=== PATIENT | male | born 1950 | race Caucasian/White ===

== ENCOUNTER → 2016-04-04 | Outpatient (CLI) | payer MEDICARE ==
[2016-04-04 13:07] LABS: FREE T3 4.05 pg/mL (2.77-5.27)
[2016-04-04 13:21] LABS: THYROID STIMULATING HORMONE 0.63 uIU/mL (0.47-4.68)
== END ==
LOC: OD 11:30
PROVIDERS: ATTEND Physician Assistant Surgical
DX: E04.2 Nontoxic multinodular goiter (principal)
CPT/HCPCS: 36415; 84436; 84443; 84481

== ENCOUNTER → 2017-02-18 | Outpatient (CLI) | payer MEDICARE, OTHER ==
--- NOTE | 2017-02-18 14:32 | RADIOLOGY REPORT (SQ) ---
EXAM DESCRIPTION: CT CHEST WITHOUT COMPLETED DATE/TIME: 02/18/2017 2:08 pm REASON FOR STUDY: R05 COUGH R05 COUGH COMPARISON: None. TECHNIQUE: CT scan performed of the chest without intravenous contrast. Images reviewed with lung, soft tissue and bone windows. Reconstructed coronal and sagittal MPR images reviewed. All images st ored on PACS. All CT scanners at this facility use dose modulation, iterative reconstruction, and/or weight based d osing when appropriate to reduce radiation dose to as low as reasonably achievable (ALARA). [facility]: Dose Right [facility]: CareDose [facility]: Dose Right [facility]: Teradose 4D [facility]: Smart Technologies RADIATION DOSE: CT Rad equipment meets quality standard of care and radiation dose reduction techniq ues were employed. CTDIvol: 5.3 mGy. DLP: 205 mGy-cm. mGy. LIMITATIONS: No technical limitations. FINDINGS: LUNGS AND PLEURA: Emphysematous changes. There is faint indistinct ground-glass opacity i n the anterior right upper lobe (series 4, image 47). Maximum measurement is 15 mm. No masses, infi ltrates, pneumothorax. No pleural effusions, calcifications. HILAR AND MEDIASTINAL STRUCTURES: No identified masses or abnormal nodes. No obvious aneurysm. HEART AND VASCULAR STRUCTURES: No aneurysm. No pericardial effusion. UPPER ABDOMEN: No significant findings. Limited exam. THYROID AND OTHER SOFT TISSUES: No masses. No adenopathy. BONES: No significant finding. HARDWARE: None in the chest. OTHER: No other significant findings. IMPRESSION: EMPHYSEMATOUS CHANGES. FAINT INDISTINCT GROUND-GLASS OPACITY IN THE RIGHT UPPER LOBE DESCRIBED. THIS IS NONSPECIFIC AND COULD REPRESENT AN AREA OF MILD INFLAMMATION OR INFECTION. NO O THER SIGNIFICANT FINDINGS. COMMENT: Fleischner Criteria for Ground Glass Nodules: >6mm ground glass single nodule: CT 6-12 mo, then CT every 2 yr until 5 yr TECHNICAL DOCUMENTATION: JOB ID: [id number] Quality ID # [id number]: Final reports with documentation of one or more dose reduction techniques (e.g., Au tomated exposure control, adjustment of the mA and/or kV according to patient size, use of iterative reconstruction technique) 2010 [employer]- All Rights Reserved
== END ==
LOC: RAD 14:29
PROVIDERS: ATTEND Physician Assistant
DX: R05 Cough (principal)
CPT/HCPCS: 71250

== ENCOUNTER 2017-03-17 03:01 | Emergency (ER) | payer OTHER, MEDICARE ==
[2017-03-17] MEDS ORDERED: HYDROCODONE/ACETAMINOPHEN 5-325 MG (6 TAB/ER DISP) PO PRN (04:48)
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
[2017-03-17 05:01] VITALS: BP 147/97
== END 2017-03-17 05:01 | disposition home or self-care (01) ==
LOC: ER 03:01
DX: M54.2 Cervicalgia (principal); M62.838 Other muscle spasm; V49.40XA Driver injured in collision with unspecified motor vehicles in traffic accident, initial encounter
CPT/HCPCS: 99283

== ENCOUNTER → 2017-03-25 | Outpatient (CLI) | payer MEDICARE, OTHER ==
--- NOTE | 2017-03-25 13:53 | RADIOLOGY REPORT (SQ) ---
EXAM DESCRIPTION: U/S THYROID/SFT TISS HD NECK COMPLETED DATE/TIME: 03/25/2017 11:02 am REASON FOR STUDY: E07.9 DISORDER OF THYROID, UNSPECIFIED E07.9 DISORDER OF THYROID, UNSPECIFIED COMPARISON: CT chest 02/18/2017 Thyroid ultrasound 03/12/2016 CT cervical spine 01/05/2009 TECHNIQUE: Dynamic and static kelley-scale images acquired of the thyroid gland. Selected additional c olor/power Doppler images recorded. All images stored to PACS. LIMITATIONS: None. FINDINGS: RIGHT LOBE: Normal size, 5.2 x 2 x 1.5 cm in size. Homogeneous echotexture. Multiple sma ll complex cysts are present in the right lobe thyroid, the largest is 9 mm in diameter in the right lower pole laterally, next largest is 5 to 6 mm in size right upper pole. These are stable. LEFT LOBE: Normal size, 5.2 x 2 x 2 cm in size. Homogeneous echotexture. Multiple small colloid cys ts are present less than 3 mm in size ISTHMUS: 5 to 6 mm in thickness with homogeneous echotexture and a stable us in 3 mm colloid cyst OTHER: No other significant finding. IMPRESSION: Stable appearance of the thyroid. Multiple benign-appearing colloid cysts are similar c ompared to ultrasound 03/12/2016 TECHNICAL DOCUMENTATION: JOB ID: [id number]- All Rights Reserved
== END ==
LOC: RAD 10:35
PROVIDERS: ATTEND Physician Assistant
DX: E07.9 Disorder of thyroid, unspecified (principal)
CPT/HCPCS: 76536

== ENCOUNTER → 2018-12-16 | Outpatient (CLI) | payer MEDICARE, OTHER ==
--- NOTE | 2018-12-16 17:11 | RADIOLOGY REPORT (SQ) ---
EXAM DESCRIPTION: CT CHEST WITHOUT COMPLETED DATE/TIME: 12/16/2018 2:13 pm REASON FOR STUDY: C34.2 MALIGNANT NEOPLASM OF MIDDLE LOBE, BRONCHUS OR LUNG C34.2 MALIGNANT NEOPLAS M OF MIDDLE LOBE, BRONCHUS OR LUNG COMPARISON: CT chest 02/18/2017, 01/05/2009 TECHNIQUE: CT scan performed of the chest without intravenous contrast. Images reviewed with lung, soft tissue and bone windows. Reconstructed coronal and sagittal MPR images reviewed. All images st ored on PACS. All CT scanners at this facility use dose modulation, iterative reconstruction, and/or weight based d osing when appropriate to reduce radiation dose to as low as reasonably achievable (ALARA). [facility]: Dose Right [facility]: CareDose [facility]: Dose Right [facility]: Teradose 4D [facility]: [employer] RADIATION DOSE: CT Rad equipment meets quality standard of care and radiation dose reduction techniq ues were employed. CTDIvol: 4.6 mGy. DLP: 175 mGy-cm. mGy. LIMITATIONS: No technical limitations. FINDINGS: LUNGS AND PLEURA: At the right lung apex, a 1.5 x 1.3 cm spiculated mass is present on axi al image 37 highly suspicious for malignancy. In the medial right upper lobe, a 3 x 2.7 cm spiculated mass is present on axial image 48 and 49, hig hly suspicious for malignancy. Remainder of the lungs exhibit obstructive disease at the apices. No pleural effusion. No pneumotho rax. No other worrisome pulmonary nodules. Airways are patent. HILAR AND MEDIASTINAL STRUCTURES: No identified masses or abnormal nodes. No obvious aneurysm. HEART AND VASCULAR STRUCTURES: No aneurysm. No pericardial effusion. UPPER ABDOMEN: No significant findings. Limited exam. THYROID AND OTHER SOFT TISSUES: No masses. No adenopathy. BONES: No lytic destructive lesion in the right T7 vertebral body and pedicle. Lytic destructive les ion in the inferior T11 vertebral body. Lytic destructive right posterior 8th rib lesion at the cost overtebral joint. HARDWARE: None in the chest. OTHER: No other significant findings. IMPRESSION: Right upper lobe masses worrisome for lung neoplasm. 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
== END ==
LOC: RAD 13:33
PROVIDERS: ATTEND Internal Medicine
DX: C34.2 Malignant neoplasm of middle lobe, bronchus or lung (principal); C79.51 Secondary malignant neoplasm of bone
CPT/HCPCS: 71250

== ENCOUNTER 2018-12-18 16:50 | Emergency (ER) | payer MEDICARE, OTHER ==
[2018-12-18 16:55] VITALS: BP 122/80
[2018-12-18] MEDS ORDERED: OXYCODONE-ACETAMINOPHEN 5-325 MG TABLET PO ONE (17:50)
--- NOTE | 2018-12-18 17:52 | ER Document Report ---
ED Medical Screen (RME) - General Chief Complaint: Pain Stated Complaint: RIB PAIN Time Seen by Provider: 12/18/18 17:43 Primary Care Provider: YANET MONREAL MD [Primary Care Provider] - Follow up as needed Mode of Arrival: Ambulatory Information source: Patient Notes: Patient presents complaining of right posterior rib pain for the past month. Patient denies any cough. Patient denies any urinary symptoms. Patient states today he sneezed and had an increase in pain symptoms. Review of patient's previous visits demonstrates that he had a CT of the chest 2 days ago which demonstrated bony mets in the location of patient's pain symptoms. I have greeted and performed a rapid initial assessment of this patient. A comprehensive ED assessment and evaluation of the patient, analysis of test results and completion of the medical decision making process will be conducted by additional ED providers. TRAVEL OUTSIDE OF THE [place] IN LAST 30 DAYS: No - Related Data Allergies/Adverse Reactions: No Known Allergies Allergy (Verified 12/18/18 17:35) Past Medical History - Past Medical History Cardiac Medical History: Reports: Hx Hypercholesterolemia Renal/ Medical History: Denies: Hx Peritoneal Dialysis GI Medical History: Reports: Hx Gastroesophageal Reflux Disease Past Surgical History: Reports: Hx Urinary Tract Surgery - Right nephrectomy, prostatectomy - Immunizations Immunizations up to date: Yes Hx Diphtheria, Pertussis, Tetanus Vaccination: Yes Physical Exam - Vital signs Vitals: Temp Pulse Resp BP Pulse Ox 97.9 F 91 20 122/80 96 12/18/18 16:53 12/18/18 16:53 12/18/18 16:53 12/18/18 16:53 12/18/18 16:53 - Respiratory Respiratory status: No respiratory distress Chest status: Pain on movement, Pain with deep breathing Breath sounds: Nonproductive cough Chest palpation: Tender Course - Vital Signs Vital signs: Temp Pulse Resp BP Pulse Ox 97.9 F 91 20 122/80 96 12/18/18 16:53 12/18/18 16:53 12/18/18 16:53 12/18/18 16:53 12/18/18 16:53 Doctor's Discharge - Discharge Referrals: YANET MONREAL MD [Primary Care Provider] - Follow up as needed
--- NOTE | 2018-12-18 18:27 | RADIOLOGY REPORT (SQ) ---
EXAM DESCRIPTION: CHEST 2 VIEWS COMPLETED DATE/TIME: 12/18/2018 6:08 pm REASON FOR STUDY: r post rib pain COMPARISON: CT 12/16/2018 TECHNIQUE: Frontal and lateral radiographic views of the chest acquired. NUMBER OF VIEWS: Two view. LIMITATIONS: None. FINDINGS: LUNGS AND PLEURA: No pneumothorax. Similar right parahilar and upper lobe masses- nodular ity. Mild bilateral basilar subsegmental atelectasis. No significant Pleural effusion. MEDIASTINUM AND HILAR STRUCTURES: Stable. HEART AND VASCULAR STRUCTURES: Stable. BONES: Compared with the CT scan from 12/16/2018, the lytic lesion in the posterior aspect of the rig ht 9th rib is identified. The medial 8th rib and vertebral body lesions are not clearly visible. HARDWARE: None in the chest. OTHER: No other significant finding. IMPRESSION: Similar right parahilar and upper lobe masses- nodularity. Mild bilateral basilar subse gmental atelectasis. No significant Pleural effusion. Compared with the CT scan from 12/16/2018, the lytic lesion in the posterior aspect of the right 9th r ib is identified. The medial 8th rib and vertebral body lesions are not clearly visible. TECHNICAL DOCUMENTATION: JOB ID: [id number] [place]-72 2010 [employer]- All Rights Reserved Reading location - IP/workstation name: [email or web address]
[2018-12-18 18:36] LABS: ABSOLUTE EOSINOPHILS # (AUTO) 0.1 10^3/uL (0.0-0.6); ABSOLUTE LYMPHOCYTES (AUTO) 1.1 10^3/uL (0.5-4.7); ABSOLUTE MONOCYTES (AUTO) 0.5 10^3/uL (0.1-1.4); ABSOLUTE NEUT (AUTO) 6.1 10^3/uL (1.7-8.2); BASOPHILS % (AUTO) 0.6 % (0-2); EOSINOPHILS % (AUTO) 1.6 % (0-6); HEMATOCRIT 44.6 % (37.9-51.0); HEMOGLOBIN 15.3 g/dL (13.5-17.0); LYMPHOCYTES % (AUTO) 14.1 % (13-45); MEAN CORPUSCULAR HEMOGLOBIN 30.8 pg (27.0-33.4); MEAN CORPUSCULAR HGB CONC 34.4 g/dL (32.0-36.0); MEAN CORPUSCULAR VOLUME 89 fl (80-97); MONOCYTES % (AUTO) 6.8 % (3-13); PLATELET COUNT 333 10^3/uL (150-450); RED BLOOD COUNT 4.99 10^6/uL (4.35-5.55); RED CELL DISTRIBUTION WIDTH 14.8 % (11.5-14.0); SEGMENTED NEUTROPHILS % (AUTO) 76.9 % (42-78); TOTAL CELLS COUNTED % (AUTO) 100 %; WHITE BLOOD COUNT 7.9 10^3/uL (4.0-10.5)
[2018-12-18 18:48] LABS: ALBUMIN 4.2 g/dL (3.5-5.0); ALKALINE PHOSPHATASE 120 U/L (38-126); ANION GAP 11 (5-19); ASPARTATE AMINO TRANSFERASE 62 U/L (17-59); BILIRUBIN,DIRECT 0.3 mg/dL (0.0-0.4); BILIRUBIN,TOTAL 0.3 mg/dL (0.2-1.3); BLOOD UREA NITROGEN 20 mg/dL (7-20); CALCIUM 9.8 mg/dL (8.4-10.2); CARBON DIOXIDE 26 mmol/L (22-30); CHLORIDE 96 mmol/L (98-107); GLUCOSE 135 mg/dL (75-110); POTASSIUM 4.3 mmol/L (3.6-5.0)
--- NOTE | 2018-12-18 20:49 | ER Document Report ---
ED General Pain - General Chief Complaint: Pain Stated Complaint: RIB PAIN Time Seen by Provider: 12/18/18 17:43 Primary Care Provider: YANET MONREAL MD [ACTIVE STAFF] - Follow up as needed Mode of Arrival: Ambulatory Notes: RME NOTE: Patient presents complaining of right posterior rib pain for the past month. Patient denies any cough. Patient denies any urinary symptoms. Patient states today he sneezed and had an increase in pain symptoms. Review of patient's previous visits demonstrates that he had a CT of the chest 2 days ago which demonstrated bony mets in the location of patient's pain symptoms. MY HPI: Pt. is currently under the care of Dr. Monreal, oncology for lung CA, h/o kidney CA, prostate CA. Patient does complain of generalized pain in the right side of his ribs when he takes a deep breath or coughs. Patient's denying any URI symptoms. States he only sneezed once this afternoon. TRAVEL OUTSIDE OF THE [place] IN LAST 30 DAYS: No - Related Data Allergies/Adverse Reactions: No Known Allergies Allergy (Verified 12/18/18 17:35) Past Medical History - General Information source: Patient - Social History Smoking Status: Former Smoker Family History: Reviewed & Not Pertinent Patient has suicidal ideation: No Patient has homicidal ideation: No - Past Medical History Cardiac Medical History: Reports: Hx Hypercholesterolemia Renal/ Medical History: Denies: Hx Peritoneal Dialysis GI Medical History: Reports: Hx Gastroesophageal Reflux Disease Past Surgical History: Reports: Hx Urinary Tract Surgery - Right nephrectomy, prostatectomy - Immunizations Immunizations up to date: Yes Hx Diphtheria, Pertussis, Tetanus Vaccination: Yes Review of Systems - Review of Systems Constitutional: denies: Fever EENT: See HPI Cardiovascular: See HPI Respiratory: See HPI Gastrointestinal: No symptoms reported Genitourinary: No symptoms reported Male Genitourinary: No symptoms reported Musculoskeletal: See HPI Skin: No symptoms reported Hematologic/Lymphatic: No symptoms reported Neurological/Psychological: No symptoms reported Physical Exam - Vital signs Vitals: Temp Pulse Resp BP Pulse Ox 97.9 F 91 20 122/80 96 12/18/18 16:53 12/18/18 16:53 12/18/18 16:53 12/18/18 16:53 12/18/18 16:53 - Notes Notes: GENERAL: Alert, interacts well. No acute distress. HEAD: Normocephalic, atraumatic. EYES: Pupils equal, round, and reactive to light. Extraocular movements intact. ENT: Oral mucosa moist, tongue midline. NECK: Full range of motion. Supple. Trachea midline. LUNGS: Clear to auscultation bilaterally, no wheezes, rales, or rhonchi. No respiratory distress. HEART: Regular rate and rhythm. No murmur Chest: No crepitus felt, no erythema ecchymosis noted anterior posterior chest wall. Generalized pain noted right mid axillary lower ribs. ABDOMEN: Soft, non-tender. Non-distended. Bowel sounds present in all 4 quadrants. EXTREMITIES: Moves all 4 extremities spontaneously. No edema, normal radial and dorsalis pedis pulses bilaterally. No cyanosis. BACK: no cervical, thoracic, lumbar midline tenderness. No saddle anesthesia, normal distal neurovascular exam. NEUROLOGICAL: Alert and oriented x3. Normal speech. cranial nerves II through XII grossly intact. PSYCH: Normal affect, normal mood. SKIN: Warm, dry, normal turgor. No rashes or lesions noted. Course - Re-evaluation Re-evalutation: 12/18/18 20:46 Chest X-Ray 12/18/18 17:51 IMPRESSION: Similar right parahilar and upper lobe masses- nodularity. Mild bilateral basilar subsegmental atelectasis. No significant Pleural effusion. Compared with the CT scan from 12/16/2018, the lytic lesion in the posterior aspect of the right 9th rib is identified. The medial 8th rib and vertebral body lesions are not clearly visible. Patient is non-tachycardic, non-hypotensive, will treat for potential rib fracture. Patient voices he has an appointment with oncology Dr. Monreal on Thursday. Return precautions discussed. - Vital Signs Vital signs: Temp Pulse Resp BP Pulse Ox 97.9 F 91 20 122/80 96 12/18/18 16:53 12/18/18 16:53 12/18/18 16:53 12/18/18 16:53 12/18/18 16:53 - Laboratory Result Diagrams: 12/18/18 18:00 12/18/18 18:00 Laboratory results interpreted by me: 12/18/18 12/18/18 18:00 18:00 RDW 14.8 H Sodium 133.3 L Chloride 96 L Creatinine 1.94 H Est GFR ( Amer) 42 L Est GFR (MDRD) Non-Af 35 L Glucose 135 H AST 62 H Discharge - Discharge Clinical Impression: Rib pain on right side Condition: Stable Disposition: HOME, SELF-CARE Instructions: Chest Wall Pain ([facility]), Rib Injuries and Fractures ([facility]) Additional Instructions: As we discussed you have been seen and treated in the emergency department for potential injury to her right ribs. There is a potential that you are cancer has spread to your bones. Please make sure you are following up with oncology. Please also use incentive spirometer as instructed by nursing staff. Please take prescription narcotics only as needed. Please return to the emergency room for any concerns. Prescriptions: Hydrocodone/Acetaminophen [[place] 5-325 mg Tablet] 1 tab PO Q6 PRN #20 tablet PRN Reason: Referrals: YANET MONREAL MD [ACTIVE STAFF] - Follow up as needed
== END 2018-12-18 20:53 | disposition home or self-care (01) ==
LOC: ER 16:50
DX: R07.81 Pleurodynia (principal); R06.7 Sneezing; C34.90 Malignant neoplasm of unspecified part of unspecified bronchus or lung; J98.11 Atelectasis; Z87.891 Personal history of nicotine dependence
CPT/HCPCS: 36415; 85025; 80053; 71046; A9270; 99283

== ENCOUNTER 2018-12-28 09:10 | Day surgery (SDC) | payer MEDICARE, OTHER ==
[2018-12-28 10:12] LABS: HEMATOCRIT 41.4 % (37.9-51.0); HEMOGLOBIN 14.1 g/dL (13.5-17.0); MEAN CORPUSCULAR HEMOGLOBIN 30.2 pg (27.0-33.4); MEAN CORPUSCULAR HGB CONC 33.9 g/dL (32.0-36.0); MEAN CORPUSCULAR VOLUME 89 fl (80-97); PLATELET COUNT 299 10^3/uL (150-450); RED BLOOD COUNT 4.65 10^6/uL (4.35-5.55); RED CELL DISTRIBUTION WIDTH 14.6 % (11.5-14.0)
[2018-12-28 10:27] LABS: INTERNATIONAL RATION (INR) 1.02; PROTHROMBIN TIME 13.4 SEC (11.4-15.4)
[2018-12-28 10:33] LABS: BLOOD UREA NITROGEN 22 mg/dL (7-20)
[2018-12-28] MEDS ORDERED: MIDAZOLAM 2 MG/2 ML INJ ONE (10:47)
[2018-12-28] MEDS ORDERED: FENTANYL CITRATE INJ/PF 100 MCG/2 ML AMPUL ONE (10:48)
[2018-12-28 13:48] VITALS: BP 125/82
--- NOTE | 2018-12-28 14:10 | RADIOLOGY REPORT (SQ) ---
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 FLUORO TIME: 6.1 seconds 76 images saved to PACS. LIMITATIONS: None. PROCEDURE: The procedure, risks, benefits, and alternatives were discussed with the patient in the p reprocedural area, and all questions were answered. Informed consent was obtained verbally and in wri ting. The patient was then brought to the CT suite, positioned prone on the CT gurney, and a time-out was p erformed. After that, axial images of the chest were obtained for targeting of the lytic lesion in t he right posterior 8th rib. Based on review of the axial images an appropriate access site was selec venita on the skin. The area around selected access site was then prepped and draped 2% chlorhexidine utilizing standard sterile technique. After that, the access site was infiltrated with 1% lidocaine and an incision was made in the skin with a #11 blade. A 17 gauge coaxial needle was then advanced through the skin inci ehsan and into the lytic lesion utilizing CT fluoroscopic guidance. After that, the inner stylet of th e coaxial needle was removed and 3 18 gauge core samples were obtained of the lytic lesion - the samp les were collected and submitted to cytopathology in formalin. The coaxial needle was then removed and axial images of the chest were repeated and reviewed ; the im ages demonstrated no acute biopsy-related complication. The patient tolerated the procedure well without immediate complication. At the end of the procedure the patient's condition was unchanged from the preprocedural baseline. IV conscious sedation was administered at the direction of the performing physician by a madeline silva. 1 milligrams of Versed and 75 micrograms of fentanyl were administered. Physiologic monitoring was provided before, during, and after sedation. The total sedation time was 30 minutes. Documentation of [id number] time the performing proceduralist spent monitoring the patient: 5 mingael weiss. IMPRESSION: Successful CT-guided biopsy of the lytic lesion in the right 8th rib as detailed above. COMMENT: Patient medication list reviewed:Yes- Quality ID# 130:Eligible professional attests to docu menting in the medical record they obtained, updated, or reviewed the patient's current medications. Quality ID #76: The patient was prepped and draped using maximum sterile barrier technique including cap, mask, sterile gown, sterile gloves, a large sterile sheet, hand hygiene, and 2% Chlorhexidine fo r cutaneous antisepsis. When ultrasound is used, sterile ultrasound techniques are followed requiring sterile gel and sterile probes. Quality ID 145: Final reports for procedures using fluoroscopy that document radiation exposure lizbeth tiffany, or exposure time and number of fluorographic images (if radiation exposure indices are not avail able) Quality ID# 436: Final reports with documentation of one or more dose reduction techniques (e.g., Aut omated exposure control, adjustment of the mA and/or kV according to patient size, use of iterative r econstruction technique) TECHNICAL DOCUMENTATION: JOB ID: [id number] [employer]- All Rights Reserved Reading location - IP/workstation name: [email or web address]
--- NOTE | 2018-12-28 14:10 | RADIOLOGY REPORT (SQ) ---
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 FLUORO TIME: 6.1 seconds 76 images saved to PACS. LIMITATIONS: None. PROCEDURE: The procedure, risks, benefits, and alternatives were discussed with the patient in the p reprocedural area, and all questions were answered. Informed consent was obtained verbally and in wri ting. The patient was then brought to the CT suite, positioned prone on the CT gurney, and a time-out was p erformed. After that, axial images of the chest were obtained for targeting of the lytic lesion in t he right posterior 8th rib. Based on review of the axial images an appropriate access site was selec venita on the skin. The area around selected access site was then prepped and draped 2% chlorhexidine utilizing standard sterile technique. After that, the access site was infiltrated with 1% lidocaine and an incision was made in the skin with a #11 blade. A 17 gauge coaxial needle was then advanced through the skin inci ehsan and into the lytic lesion utilizing CT fluoroscopic guidance. After that, the inner stylet of th e coaxial needle was removed and 3 18 gauge core samples were obtained of the lytic lesion - the samp les were collected and submitted to cytopathology in formalin. The coaxial needle was then removed and axial images of the chest were repeated and reviewed ; the im ages demonstrated no acute biopsy-related complication. The patient tolerated the procedure well without immediate complication. At the end of the procedure the patient's condition was unchanged from the preprocedural baseline. IV conscious sedation was administered at the direction of the performing physician by a madeline silva. 1 milligrams of Versed and 75 micrograms of fentanyl were administered. Physiologic monitoring was provided before, during, and after sedation. The total sedation time was 30 minutes. Documentation of [id number]-qd-[id number] time the performing proceduralist spent monitoring the patient: 5 mingael weiss. IMPRESSION: Successful CT-guided biopsy of the lytic lesion in the right 8th rib as detailed above. COMMENT: Patient medication list reviewed:Yes- Quality ID# 130:Eligible professional attests to docu menting in the medical record they obtained, updated, or reviewed the patient's current medications. Quality ID #76: The patient was prepped and draped using maximum sterile barrier technique including cap, mask, sterile gown, sterile gloves, a large sterile sheet, hand hygiene, and 2% Chlorhexidine fo r cutaneous antisepsis. When ultrasound is used, sterile ultrasound techniques are followed requiring sterile gel and sterile probes. Quality ID 145: Final reports for procedures using fluoroscopy that document radiation exposure lizbeth tiffany, or exposure time and number of fluorographic images (if radiation exposure indices are not avail able) Quality ID# 436: Final reports with documentation of one or more dose reduction techniques (e.g., Aut omated exposure control, adjustment of the mA and/or kV according to patient size, use of iterative r econstruction technique) TECHNICAL DOCUMENTATION: JOB ID: [id number] [employer]- All Rights Reserved Reading location - IP/workstation name: [email or web address]
== END 2018-12-28 13:35 | disposition home or self-care (01) ==
LOC: RAD 09:10
PROVIDERS: ATTEND Internal Medicine
DX: C34.2 Malignant neoplasm of middle lobe, bronchus or lung (principal); Z79.01 Long term (current) use of anticoagulants
CPT/HCPCS: 36415; 84520; 82565; 85027; 85610; 85730; 88342 ×2; 88341 ×2; 88305 ×2; 77012; 20225; J2250; J3010

== ENCOUNTER → 2019-01-06 | Outpatient (CLI) | payer MEDICARE, OTHER ==
--- NOTE | 2019-01-06 14:56 | RADIOLOGY REPORT (SQ) ---
EXAM DESCRIPTION: CT ABDOMEN COMBO COMPLETED DATE/TIME: 01/06/2019 11:08 am REASON FOR STUDY: LUNG CA (C34.2), RENAL CA (C64.1) C34.2 MALIGNANT NEOPLASM OF MIDDLE LOBE, BRONCH US OR LUNG C64.1 MALIGNANT NEOPLASM OF RIGHT KIDNEY, EXCEPT RENAL PELVI COMPARISON: 01/05/2009. TECHNIQUE: CT scan of the abdomen performed with and without intravenous contrast, and without oral contrast. Contrasted imaging performed using helical scanning technique with dynamic intravenous cont rast injection. Images reviewed with lung, soft tissue, and bone windows. Reconstructed coronal and s agittal MPR images reviewed. Delayed images for evaluation of the urinary system also acquired and ev aluated. All images stored on PACS. All CT scanners at this facility use dose modulation, iterative reconstruction, and/or weight based d osing when appropriate to reduce radiation dose to as low as reasonably achievable (ALARA). [facility]: Dose Right [facility]: CareDose [facility]: Dose Right [facility]: Teradose 4D [facility]: uberVU CONTRAST TYPE AND DOSE: contrast/concentration: Isovue 300.00 mg/ml; Total Contrast Delivered: 47.0 ml; Total Saline Delivered: 77.0 ml RENAL FUNCTION: Creatinine 1.7. RADIATION DOSE: CT Rad equipment meets quality standard of care and radiation dose reduction techniq ues were employed. CTDIvol: 4.6 - 19.7 mGy. DLP: 671 mGy-cm.. LIMITATIONS: None. FINDINGS: NONCONTRASTED IMAGING: No significant renal or bladder calcifications. No other significan t organ calcifications. POSTCONTRASTED IMAGING: LOWER CHEST: No significant findings. No nodules or infiltrates. LIVER: Normal size. Stable 1.8 cm low-attenuation lesion in the right lobe with delayed enhancement. No dilated ducts. SPLEEN: Normal size. No focal lesions. PANCREAS: No masses. No significant calcifications. No adjacent inflammation or peripancreatic fluid collections. Pancreatic duct not dilated. GALLBLADDER: No identified stones by CT criteria. No inflammatory changes to suggest cholecystitis. ADRENAL GLANDS: No significant masses or asymmetry. RIGHT KIDNEY AND URETER: Surgically absent. LEFT KIDNEY AND URETER: No solid masses. No significant calcifications. No hydronephrosis or hydr oureter. AORTA AND VESSELS: No aneurysm. No dissection. Renal arteries, SMA, celiac without stenosis. RETROPERITONEUM: No retroperitoneal adenopathy, hemorrhage or masses. BOWEL AND PERITONEAL CAVITY: No masses or inflammatory changes. No free fluid or peritoneal masses. APPENDIX: Not visualized. ABDOMINAL WALL: No masses. No hernias. BONES: No significant or acute findings. Degenerative changes in the spine. OTHER: No other significant finding. IMPRESSION: STABLE HEMANGIOMA IN THE LIVER, UNCHANGED SINCE 2008. PREVIOUS RIGHT NEPHRECTOMY. NO O THER SIGNIFICANT OR ACUTE ABNORMALITY IN THE ABDOMEN. TECHNICAL DOCUMENTATION: JOB ID: [id number] Quality ID # 436: Final reports with documentation of one or more dose reduction techniques (e.g., Au tomated exposure control, adjustment of the mA and/or kV according to patient size, use of iterative reconstruction technique) 2010 [employer]- All Rights Reserved Reading location - IP/workstation name: [email or web address]
== END ==
LOC: RAD 10:22
PROVIDERS: ATTEND Physician Assistant Medical
DX: C34.2 Malignant neoplasm of middle lobe, bronchus or lung (principal); C64.1 Malignant neoplasm of right kidney, except renal pelvis
CPT/HCPCS: 74170; 82565

== ENCOUNTER 2019-01-11 10:23 | Day surgery (SDC) | payer MEDICARE, OTHER ==
[~2019-01-11 10:23] MED LIST: AMPICILLIN SODIUM 2 GM in NORMAL SALINE 100 ML IV PRN; SUCCINYLCHOLINE CHLORIDE INJ 200 MG/10 ML VIAL ONE
[2019-01-11] MEDS ORDERED: MIDAZOLAM 2 MG/2 ML INJ ONE (11:16)
[2019-01-11] MEDS ORDERED: FENTANYL CITRATE INJ/PF 100 MCG/2 ML AMPUL ONE ×2 (11:16→13:25)
[2019-01-11] MEDS ORDERED: ONDANSETRON HCL INJ/PF 4 MG/2 ML SDV ONE (11:16)
[2019-01-11] MEDS ORDERED: PROPOFOL INJ 200 MG/20 ML VIAL IV ONE (11:16)
[2019-01-11] MEDS ORDERED: DEXAMETHASONE SOD PHOSPHATE INJ 4 MG/1 ML VIAL ONE (11:16)
[2019-01-11] MEDS ORDERED: OXYMETAZOLINE HCL 0.05% NASAL SPRAY 15 ML BOTTLE ONE (11:19)
[2019-01-11 11:47] LABS: HEMATOCRIT 40.1 % (37.9-51.0); HEMOGLOBIN 13.5 g/dL (13.5-17.0); MEAN CORPUSCULAR HGB CONC 33.8 g/dL (32.0-36.0); MEAN CORPUSCULAR VOLUME 89 fl (80-97); PLATELET COUNT 284 10^3/uL (150-450); RED BLOOD COUNT 4.52 10^6/uL (4.35-5.55); RED CELL DISTRIBUTION WIDTH 14.6 % (11.5-14.0); WHITE BLOOD COUNT 7.9 10^3/uL (4.0-10.5)
[2019-01-11 11:55] LABS: ALBUMIN 4.1 g/dL (3.5-5.0); ALKALINE PHOSPHATASE 115 U/L (38-126); ANION GAP 12 (5-19); ASPARTATE AMINO TRANSFERASE 50 U/L (17-59); BILIRUBIN,DIRECT 0.1 mg/dL (0.0-0.4); BILIRUBIN,TOTAL 0.6 mg/dL (0.2-1.3); BLOOD UREA NITROGEN 22 mg/dL (7-20); CALCIUM 9.7 mg/dL (8.4-10.2); CARBON DIOXIDE 23 mmol/L (22-30); CHLORIDE 98 mmol/L (98-107); GLUCOSE 78 mg/dL (75-110); POTASSIUM 4.4 mmol/L (3.6-5.0); TOTAL PROTEIN 7.1 g/dL (6.3-8.2)
[2019-01-11] MEDS ORDERED: DIPHENHYDRAMINE HCL 50 MG/ML VIAL IV PRN (12:14)
[2019-01-11] MEDS ORDERED: PROMETHAZINE HCL INJ 25 MG/1 ML VIAL IV PRN ×2 (12:14)
[2019-01-11] MEDS ORDERED: ONDANSETRON HCL INJ/PF 4 MG/2 ML SDV IV PRN ×2 (12:14→13:24)
[2019-01-11] MEDS ORDERED: FENTANYL CITRATE INJ/PF 100 MCG/2 ML AMPUL IV PRN ×3 (12:14)
[2019-01-11] MEDS ORDERED: MORPHINE SULFATE 10 MG/ML INJ IV PRN (12:14)
[2019-01-11] MEDS ORDERED: OXYCODONE-ACETAMINOPHEN 5-325 MG TABLET PO PRN ×2 (12:14)
[2019-01-11] MEDS ORDERED: MEPERIDINE HCL/PF INJ 25 MG/1 ML DISP.SYRIN IV PRN (12:14)
--- NOTE | 2019-01-11 14:04 | Operative Report ---
Operative Report-[facility] Operative Report: Date: 11 January 2019 History: Patient with history of renal cell carcinoma, adeno carcinoma of the lung and prostate adenocarcinoma, underwent a PET CT scan that identified increased uptake in the area of the palantine tonsils bilaterally. Physical exam revealed asymmetric tonsils with the left side being much greater than the right. Presents today for a tonsillectomy. Informed consent was obtained from the patient. Pre-operative diagnosis: 1. Asymmetric tonsils left greater than right 2. History of multiple primary cancers Post operative diagnosis: Same as above Procedure: Tonsillectomy Surgeon: Rony Fish MD, [facility] Anesthesia: General via Endotrachreal intubation Procedure: After receiving informed consent, the patient was brought to the operating room and placed supine on the operating table. After successful induction and intubation by anesthesia the patient was turned 90 degrees and placed in Trendelenburg. A shoulder roll was placed along with a head drape. A McIvor mouth gag was inserted atraumatically into the oral cavity and opened up. The soft palate was palpated and found to be normal. Red rubber catheters were inserted down each nasal cavity and brought out to elevate the soft palate. Attention was then directed to the tonsils. The right tonsil was grasped with tenaculum and retracted medially. Using Bovie electrocautery the right tonsil was dissected free from its tonsillar fossa . Hemostasis was obtained using suction Bovie electrocautery. A similar procedure was performed on the left side. The left tonsil appeared much larger than the right and was friable. The left tonsil appeared to contain a soft tissue infiltrate. Both tonsils were removed. The oral pharynx and the oral cavity were irrigated with copious amounts of normal saline, without evidence of bleeding. An orogastric tube was inserted into the stomach to aspirate gastric contents. The McIvor mouthgag was then released and reopened, the surgical bed was dry without evidence of bleeding. The McIvor mouth gag along with the red catheters were removed from the patient. The patient was then returned back to anesthesia who successfully extubated the patient. Estimated blood loss: 15 mL Fluids: 800 mL The patient was then transported to the Post Anesthesia Care Unit in stable condition with spontaneous respiration. No complication.
[2019-01-11] MEDS ORDERED: HYDROCOD/ACETAMIN 7.5-325 MG/15 ML ORAL SOLN UDCUP ONE (14:23)
[2019-01-11 16:17] VITALS: BP 128/89
--- NOTE | 2019-01-11 23:48 | EKG REPORT ---
SEVERITY:- NORMAL ECG - SINUS RHYTHM : Confirmed by: Genia Espana MD 11-Jan-2019 23:47:41
== END 2019-01-11 15:40 | disposition home or self-care (01) ==
LOC: OROUT 10:23
PROVIDERS: ATTEND Otolaryngology
DX: J35.1 Hypertrophy of tonsils (principal); J35.8 Other chronic diseases of tonsils and adenoids; C34.91 Malignant neoplasm of unspecified part of right bronchus or lung; Z79.899 Other long term (current) drug therapy; C64.1 Malignant neoplasm of right kidney, except renal pelvis; C61 Malignant neoplasm of prostate
CPT/HCPCS: 36415; 88185 ×15; 88184; 85027; 80053; 88233; 88262; 88304 ×2; 93005; 93010; 42826; J2250; J1100; J3010; J3490; J0330; J2405; J2704; J0290; J7050

== ENCOUNTER 2019-01-19 05:30 | Day surgery (SDC) | payer MEDICARE, OTHER ==
[~2019-01-19 05:30] MED LIST changes: +ACETAMINOPHEN 325 MG TABLET PO PRN; -AMPICILLIN SODIUM 2 GM in NORMAL SALINE 100 ML IV PRN; +CEFAZOLIN SODIUM 1 GM in DEXTROSE 5%-WATER 50 ML IV PRN; -SUCCINYLCHOLINE CHLORIDE INJ 200 MG/10 ML VIAL ONE
[2019-01-19 06:37] LABS: ABSOLUTE EOSINOPHILS # (AUTO) 0.2 10^3/uL (0.0-0.6); ABSOLUTE LYMPHOCYTES (AUTO) 1.2 10^3/uL (0.5-4.7); ABSOLUTE NEUT (AUTO) 6.3 10^3/uL (1.7-8.2); BASOPHILS % (AUTO) 0.6 % (0-2); EOSINOPHILS % (AUTO) 2.2 % (0-6); HEMOGLOBIN 13.2 g/dL (13.5-17.0); LYMPHOCYTES % (AUTO) 13.5 % (13-45); MEAN CORPUSCULAR HEMOGLOBIN 30.6 pg (27.0-33.4); MEAN CORPUSCULAR HGB CONC 34.7 g/dL (32.0-36.0); MEAN CORPUSCULAR VOLUME 88 fl (80-97); PLATELET COUNT 291 10^3/uL (150-450); RED BLOOD COUNT 4.31 10^6/uL (4.35-5.55); SEGMENTED NEUTROPHILS % (AUTO) 72.7 % (42-78); TOTAL CELLS COUNTED % (AUTO) 100 %; WHITE BLOOD COUNT 8.7 10^3/uL (4.0-10.5)
[2019-01-19] MEDS ORDERED: FENTANYL CITRATE INJ/PF 100 MCG/2 ML AMPUL ONE (07:03)
[2019-01-19] MEDS ORDERED: MIDAZOLAM 2 MG/2 ML INJ ONE (07:03)
[2019-01-19] MEDS ORDERED: PROPOFOL INJ 200 MG/20 ML VIAL IV ONE (07:04)
[2019-01-19] MEDS ORDERED: LIDOCAINE 1%/EPINEPHRINE INJ 20 ML VIAL ONE (07:12)
[2019-01-19] MEDS ORDERED: PROMETHAZINE HCL INJ 25 MG/1 ML VIAL IV PRN (08:11)
[2019-01-19] MEDS ORDERED: FENTANYL CITRATE INJ/PF 100 MCG/2 ML AMPUL IV PRN (08:11)
[2019-01-19] MEDS ORDERED: DIPHENHYDRAMINE HCL 50 MG/ML VIAL IV PRN (08:11)
--- NOTE | 2019-01-19 08:40 | Discharge Summary ---
Discharge Summary (SDC) - Discharge Final Diagnosis: Metastatic carcinoma Date of Surgery: 01/19/19 Discharge Date: 01/19/19 Condition: Good Treatment or Instructions: May use port; no shower for 48 hours; report to [facility] for follow-up in 2 weeks. May take Tylenol Motrin or other home pain medications as needed Referrals: DORI KRAMER MD [Primary Care Provider] - Discharge Diet: As Tolerated Discharge Activity: Activity As Tolerated Home Care Assistance: None Needed Report the Following to Your Physician Immediately: Shortness of Breath, Increase in Pain, Fever over 101 Degrees
--- NOTE | 2019-01-19 08:44 | Operative Report ---
Operative Report DATE OF SURGERY: 01/19/19 PREOPERATIVE DIAGNOSIS: Metastatic carcinoma POSTOPERATIVE DIAGNOSIS: Same OPERATION: 1. Percutaneous access right internal jugular vein with micro introducer sheath. 2. Placement of single-chamber [address]-Cxcl [address] right subclavian position. 3. Interpretation of intraoperative fluoroscopy and ultrasonography TISSUE REMOVED OR ALTERED: None COMPLICATIONS: none ESTIMATED BLOOD LOSS: scant INTRAOPERATIVE FINDINGS: see below PROCEDURE: The patient was taken to the preop holding her to the main operating room where LMAC anesthesia was induced. Arms were tucked at side, chest clipped of hair, neck and chest prepped draped sterile fashion Surgical plan surgical timeout were conducted. Ultrasound was placed on the right neck, the right internal jugular vein felt suitable for cannulation. Skin was anesthetized 1% plain lidocaine. Roney was made skin with 11 blade, a micro needle and wire threaded into the right internal jugular vein. Her graph suitable site for placement of the port was chosen. Skin was anesthetized 1% plain lidocaine. A 3 cm incision made with a knife, port pocket developed with electrocautery and blunt dissection large enough to accommodate a single-chamber Rmxivl-e-Tjxg catheter. The 8 Arabic catheter was then tunneled between the 2 incisions, trimmed the appropriate length, and attached to the port with the plastic ring. The port was tucked in the right subclavian pocket. The micro wire was switched over to a conventional 0.030 guidewire using the micro introducer sheath 5 Arabic. Then under fluoroscopic guidance, a 8 mm dilator and sheath were threaded over the guidewire, guidewire dilator removed, and free catheter and threaded into the strip away sheath. The strip away sheath was removed leaving the catheter in good position with the tip in the right atrial superior vena cava junction. There was no kinking of the catheter. There was a nice sweep at the level of the neck. Using a Rutledge needle, the chamber was aspirated and flushed with heparinized saline, dilute. Wounds closed with 3-0 Vicryl, Mastisol and Steri-Strips. Patient tolerated procedure well, taken recovery in stable condition.
[2019-01-19 11:32] VITALS: BP 113/77
--- NOTE | 2019-01-19 12:42 | RADIOLOGY REPORT (SQ) ---
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 TECHNIQUE: Intra-operative images acquired during surgical procedure to evaluate progress. NUMBER OF IMAGES: 2 LIMITATIONS: None. FINDINGS: Limited intraoperative fluoroscopic images demonstrate evidence of right internal jugular base chest port placement. Catheter tip at SVC. Please see operative report for detailed descriptio n. IMPRESSION: IMAGE(S) OBTAINED DURING PROCEDURE. COMMENT: Quality ID 145: Final reports for procedures using fluoroscopy that document radiation exp osure indices, or exposure time and number of fluorographic images (if radiation exposure indices are not available) Please consult full operative report of the attending physician for description of the procedure. TECHNICAL DOCUMENTATION: JOB ID: [id number] [employer]- All Rights Reserved Reading location - IP/workstation name: [email or web address]
== END 2019-01-19 10:00 | disposition home or self-care (01) ==
LOC: OROUT 05:30
PROVIDERS: ATTEND Surgery
DX: C25.9 Malignant neoplasm of pancreas, unspecified (principal); Q60.0 Renal agenesis, unilateral; E04.2 Nontoxic multinodular goiter; I10 Essential (primary) hypertension; Z79.899 Other long term (current) drug therapy
CPT/HCPCS: 36561; 36415; 85025; 77001; J2250; J0690; J3490; J7060; J2704; J1642; C1752; C1788; J3010

== ENCOUNTER 2019-05-10 11:36 | Inpatient (IN) | payer MEDICARE, OTHER ==
[2019-05-10] MEDS ORDERED: ACETAMINOPHEN 325 MG TABLET PO PRN ×2 (11:53→14:00)
[2019-05-10] MEDS ORDERED: OXYCODONE-ACETAMINOPHEN 5-325 MG TABLET PO PRN (11:53)
[2019-05-10] MEDS ORDERED: ONDANSETRON HCL INJ/PF 4 MG/2 ML SDV IV PRN (11:53)
[2019-05-10] MEDS: NORMAL SALINE 1000 ML 1,000 ML IV PRN ×2 (12:51→17:05)
[2019-05-10] MEDS ORDERED: IPRATROPIUM/ALBUTEROL 0.5-2.5 MG/3 ML AMPUL NEB SCH (14:00)
[2019-05-10] MEDS: IPRATROPIUM/ALBUTEROL 0.5-2.5 MG/3 ML AMPUL NEB SCH ×2 (14:11→19:51)
--- NOTE | 2019-05-10 16:20 | RADIOLOGY REPORT (SQ) ---
EXAM DESCRIPTION: CHEST 2 VIEWS COMPLETED DATE/TIME: 05/10/2019 3:00 pm REASON FOR STUDY: cough COMPARISON: Two-view chest 12/18/2018 CT chest 02/18/2017 EXAM PARAMETERS: NUMBER OF VIEWS: two views TECHNIQUE: Digital Frontal and Lateral radiographic views of the chest acquired. RADIATION DOSE: NA LIMITATIONS: none FINDINGS: LUNGS AND PLEURA: AP density right upper lobe superimposed on the access hub for permanent central line. Question pulmonary nodule versus upper lobe infiltrate. Lungs otherwise grossly clear. No pleural effusion or pneumothorax. MEDIASTINUM AND HILAR STRUCTURES: Fullness right upper hilar region HEART AND VASCULAR STRUCTURES: Heart normal size. No evidence for failure. BONES: Question lytic lesion posterior right 9th rib. HARDWARE: Right-sided permanent central line tip superior vena cava OTHER: No other significant finding. IMPRESSION: Nodule versus infiltrate right upper lobe superimposed on the permanent central line TECHNICAL DOCUMENTATION: JOB ID: [id number] 2010 [employer]- All Rights Reserved Reading location - IP/workstation name: [email or web address]
[2019-05-10] MEDS: CEFEPIME HCL 2 GM in NORMAL SALINE 50 ML IV SCH (17:02)
[2019-05-10] MEDS: DOCUSATE SODIUM 100 MG CAPSULE PO SCH (17:02)
[2019-05-10] MEDS: CALCIUM CARBONATE 600 MG TABLET PO SCH (17:02)
[2019-05-10] MEDS ORDERED: CEFEPIME HCL 2 GM in DEXTROSE 5%-WATER 50 ML IV SCH ×2 (18:00→22:00)
--- NOTE | 2019-05-10 18:46 | EKG REPORT ---
SEVERITY:- OTHERWISE NORMAL ECG - SINUS TACHYCARDIA : Confirmed by: Azucena Valle 10-May-2019 18:45:41
[2019-05-10] MEDS: FAMOTIDINE 20 MG TABLET PO SCH (21:28)
[2019-05-10] MEDS ORDERED: CEFEPIME HCL 2 GM in NORMAL SALINE 50 ML IV SCH (22:00)
[2019-05-10] MEDS ORDERED: CEFEPIME 2 GM/D5W RTU 2 GM/50 ML RTUPB IV SCH (22:00)
[2019-05-10] MEDS ORDERED: CEFEPIME HCL 2 GM in NORMAL SALINE 50 ML IV ONE (22:00)
[2019-05-11] MEDS: NORMAL SALINE 1000 ML 1,000 ML IV PRN ×3 (01:38→23:28)
[2019-05-11] MEDS: IPRATROPIUM/ALBUTEROL 0.5-2.5 MG/3 ML AMPUL NEB SCH ×4 (02:38→20:33)
[2019-05-11] MEDS: CEFEPIME HCL 2 GM in NORMAL SALINE 50 ML IV SCH ×2 (05:14→17:10)
[2019-05-11 05:47] LABS: ALBUMIN 2.3 g/dL (3.5-5.0); ALKALINE PHOSPHATASE 58 U/L (38-126); ANION GAP 7 (5-19); ASPARTATE AMINO TRANSFERASE 57 U/L (17-59); BILIRUBIN,TOTAL 0.6 mg/dL (0.2-1.3); BLOOD UREA NITROGEN 17 mg/dL (7-20); CARBON DIOXIDE 17 mmol/L (22-30); CHLORIDE 111 mmol/L (98-107); GLUCOSE 92 mg/dL (75-110); TOTAL PROTEIN 4.9 g/dL (6.3-8.2)
[2019-05-11 05:52] LABS: HEMATOCRIT 32.3 % (37.9-51.0); HEMOGLOBIN 11.3 g/dL (13.5-17.0); MEAN CORPUSCULAR HEMOGLOBIN 33.2 pg (27.0-33.4); MEAN CORPUSCULAR HGB CONC 34.8 g/dL (32.0-36.0); MEAN CORPUSCULAR VOLUME 95 fl (80-97); RED BLOOD COUNT 3.39 10^6/uL (4.35-5.55); WHITE BLOOD COUNT 2.3 10^3/uL (4.0-10.5)
[2019-05-11 06:07] LABS: CALCIUM 6.8 mg/dL (8.4-10.2)
[2019-05-11 06:35] LABS: PLATELET COUNT 50 10^3/uL (150-450)
[2019-05-11 06:40] LABS: ABSOLUTE LYMPHOCYTES# (MANUAL) 1.3 10^3/uL (0.5-4.7); BASOPHILS % (MANUAL) 0 % (0-2); EOSINOPHILS % (MANUAL) 0 % (0-6); LYMPHOCYTES % (MANUAL) 55 % (13-45); MONOCYTES % (MANUAL) 0 % (3-13); SEGMENTED NEUTROPHILS % (MAN) 45 % (42-78); TOTAL CELLS COUNTED 100
[2019-05-11 06:43] LABS: ANISOCYTOSIS 3+; OVALOCYTES SLIGHT; TEAR DROP CELLS 1+
[2019-05-11 06:47] LABS: PLATELET COMMENT DECREASED
--- NOTE | 2019-05-11 07:56 | PDOC CONSULTATION ---
Consultation Consult Date: 05/11/19 Attending physician:: DORI GREER Provider Consulted: YANET MONREAL Consult reason:: Patient with known stage IV carcinoma of unknown primary, here with weakness, increased pain and cough History of Present Illness Admission Date/PCP: 05/10/19 11:53 SINA MACHADO PA-C Patient complains of: Shortness of breath cough, weakness History of Present Illness: NUNU GONZALEZ SR is a 68 year old male with known history of carcinoma of unknown primary, originally diagnosed years ago with the kidney cancer status post resection, did actually have a recurrence in the adrenal gland and had adrenalectomy and was disease-free thereafter and was disease-free now for almost 6 years. Last year, patient was found to have a new lung lesion, ultimately biopsy-proven to be adenocarcinoma. Thereafter he was found to have other lesions in the bone and had a re-biopsy, rebiopsy actually felt this was adenocarcinoma from possible GI primary but EGD and colonoscopy was negative for any GI source, and PET scan was also negative for GI source. Regardless, we treated as a GI primary giving him FOLFOX. He received 6 cycles of that and was due for restaging imaging today. He came yesterday though for regular labs and was found to be very weak, dehydrated, overnight it was difficult for the to get him up. He came in a wheelchair. He was given some fluids but still was very weak and so was made a direct admission by Dr. Greer. Upon admission he was pancytopenic, chest x-ray showed a possible infiltrate. He is currently on antibiotics for pneumonia, broad-spectrum as well as aggressive hydration. He is getting CT of the chest abdomen pelvis today for restaging as well. Past Medical History Cardiac Medical History: Reports: Hyperlipidema, Hypertension Denies: Coronary Artery Disease, Myocardial Infarction Pulmonary Medical History: Reports: Chronic Obstructive Pulmonary Disease (COPD) Denies: Asthma, Bronchitis, Pneumonia Neurological Medical History: Denies: Seizures Malignancy Medical History: Reports: Other - Stage IV carcinoma of unknown primary GI Medical History: Reports: Gastroesophageal Reflux Disease Denies: Hepatitis, Hiatal Hernia Musculoskeltal Medical History: Denies: Arthritis Hematology: Denies: Anemia, Sickle Cell Disease Past Surgical History Past Surgical History: Reports: Other - Nephrectomy, adrenalectomy Denies: Pacemaker Social History Information Source: Patient Smoking Status: Former Smoker Electronic Cigarette use?: No Frequency of Alcohol Use: None Hx Recreational Drug Use: No Drugs: None Hx Prescription Drug Abuse: No - Advance Directive Resuscitation Status: Full Code Family History Family History: Reviewed & Not Pertinent Parental Family History Reviewed: Yes Children Family History Reviewed: Yes Sibling(s) Family History Reviewed.: Yes Medication/Allergy Home Medications: Cetirizine HCl [Zyrtec 10 mg Chewable Tab] 1 tab PO DAILY 12/28/18 Esomeprazole Magnesium [Nexium] 20 mg PO DAILY 12/28/18 Montelukast Sodium [Singulair 10 mg Tablet] 10 mg PO DAILY 12/28/18 Tiotropium [place] [Spiriva Handihaler 5 Cap/Kit (18 Mcg/Cap)] 1 cap PO DAILY 12/28/18 Fluticasone/Salmeterol [Advair 250-50 Diskus 14 Dose/Diskus] 1 inh IH DAILY 01/04/19 Calcium Carbonate [Calcium] 1,200 mg PO BID 05/10/19 Cholecalciferol (Vitamin D3) [Vitamin D3] 25 mcg PO DAILY 05/10/19 Megestrol Acetate [Megace Valery 400 mg/10 ml Udcup] 400 mg PO DAILY 05/10/19 Oxycodone HCl [Oxycodone HCl ER] 20 mg PO Q12 05/10/19 Pantoprazole Sodium 20 mg PO DAILY 05/10/19 Potassium Chloride [Klor-Con] 20 meq PO DAILY 05/10/19 Allergies/Adverse Reactions: No Known Allergies Allergy (Verified 01/19/19 05:57) Review of Systems Constitutional: ABSENT: chills, fever(s), headache(s), weight gain, weight loss Eyes: ABSENT: visual disturbances Ears: ABSENT: hearing changes Cardiovascular: ABSENT: chest pain, dyspnea on exertion, edema, orthropnea, palpitations Respiratory: ABSENT: cough, hemoptysis Gastrointestinal: ABSENT: abdominal pain, constipation, diarrhea, hematemesis, hematochezia, nausea, vomiting Genitourinary: ABSENT: dysuria, hematuria Musculoskeletal: ABSENT: joint swelling Integumentary: ABSENT: rash, wounds Neurological: ABSENT: abnormal gait, abnormal speech, confusion, dizziness, focal weakness, syncope Psychiatric: ABSENT: anxiety, depression, homidical ideation, suicidal ideation Endocrine: ABSENT: cold intolerance, heat intolerance, polydipsia, polyuria Hematologic/Lymphatic: ABSENT: easy bleeding, easy bruising Physical Exam Vital Signs: Temp Pulse Resp BP Pulse Ox 98.4 F 92 16 112/73 96 05/11/19 00:00 05/11/19 02:38 05/11/19 02:38 05/11/19 00:00 05/11/19 02:38 Intake & Output 05/10/19 05/11/19 05/12/19 06:59 06:59 06:59 Intake Total 3159 Output Total 300 Balance 2859 Weight 47.2 kg General appearance: PRESENT: no acute distress, well-developed, well-nourished Head exam: PRESENT: atraumatic, normocephalic Eye exam: PRESENT: conjunctiva pink, EOMI, PERRLA. ABSENT: scleral icterus Ear exam: PRESENT: normal external ear exam Mouth exam: PRESENT: moist, tongue midline Neck exam: ABSENT: carotid bruit, JVD, lymphadenopathy, thyromegaly Respiratory exam: PRESENT: clear to auscultation elsa. ABSENT: rales, rhonchi, wheezes Cardiovascular exam: PRESENT: RRR. ABSENT: diastolic murmur, rubs, systolic murmur Pulses: PRESENT: normal dorsalis pedis pul Vascular exam: PRESENT: normal capillary refill GI/Abdominal exam: PRESENT: normal bowel sounds, soft. ABSENT: distended, guarding, mass, organolmegaly, rebound, tenderness Rectal exam: PRESENT: deferred Extremities exam: PRESENT: full ROM. ABSENT: calf tenderness, clubbing, pedal edema Neurological exam: PRESENT: alert, awake, oriented to person, oriented to place, oriented to time, oriented to situation, CN II-XII grossly intact. ABSENT: motor sensory deficit Psychiatric exam: PRESENT: appropriate affect, normal mood. ABSENT: homicidal ideation, suicidal ideation Skin exam: PRESENT: dry, intact, warm. ABSENT: cyanosis, rash Results Laboratory Results: 05/11/19 04:56 05/11/19 04:56 05/11/19 05/11/19 04:56 04:56 WBC 2.3 L RBC 3.39 L Hgb 11.3 L Hct 32.3 L MCV 95 MCH 33.2 MCHC 34.8 RDW 21.0 H Plt Count 50 L Seg Neutrophils % Not Reportable Sodium 134.7 L Potassium 4.0 Chloride 111 H Carbon Dioxide 17 L Anion Gap 7 BUN 17 Creatinine 0.89 Est GFR ( Amer) > 60 Glucose 92 Calcium 6.8 L* Magnesium 1.9 Total Bilirubin 0.6 AST 57 Alkaline Phosphatase 58 Total Protein 4.9 L Albumin 2.3 L Impressions: Chest X-Ray 05/10/19 11:56 IMPRESSION: Nodule versus infiltrate right upper lobe superimposed on the permanent central line Status: Image reviewed by me Assessment & Plan - Diagnosis (1) Pneumonia involving right lung Qualifiers: Pneumonia type: due to unspecified organism Lung location: middle lobe of lung Qualified Code(s): J18.9 - Pneumonia, unspecified organism Is this a current diagnosis for this admission?: Yes Plan: Possible infiltrate on chest x-ray however could be the known lung nodule as well, on cefepime currently. Cultures and UA is pending. Continue antibiotics until we have negative cultures. 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 We will discuss further once we have the imaging back. (3) Pancytopenia Is this a current diagnosis for this admission?: Yes Plan: Pancytopenia related to chemotherapy, will watch (4) Hypocalcemia Is this a current diagnosis for this admission?: Yes Plan: Secondary to the Xgeva that we are giving as an outpatient, appropriate to replace IV. (5) Pain, neoplasm-related Is this a current diagnosis for this admission?: Yes Plan: Continue with pain medication, currently controlled - Time Time Spent: Greater than 70 Minutes - Inpatient Certification Based on my medical assessment, after consideration of the patient's comorbidities, presenting symptoms, or acuity I expect that the services needed warrant INPATIENT care.: Yes I certify that my determination is in accordance with my understanding of Medicare's requirements for reasonable and necessary INPATIENT services [42 CFR 412.3e].: Yes Medical Necessity: Need for Pain Control, Need for IV Antibiotics, Risk of Complication if Not Cared For in Hospital
[2019-05-11] MEDS: CALCIUM CARBONATE 600 MG TABLET PO SCH ×2 (09:38→17:10)
[2019-05-11] MEDS: FAMOTIDINE 20 MG TABLET PO SCH ×2 (09:38→21:08)
[2019-05-11] MEDS: FLUTICASONE/VILANTEROL 200-25 MCG/DOSE IH SCH (09:38)
[2019-05-11] MEDS: DOCUSATE SODIUM 100 MG CAPSULE PO SCH ×2 (09:38→17:10)
[2019-05-11] MEDS: MONTELUKAST SODIUM 10 MG TABLET PO SCH (09:38)
[2019-05-11] MEDS: UMECLIDINIUM BROMIDE 62.5 MCG/DOSE IH SCH (09:40)
--- NOTE | 2019-05-11 09:50 | PDOC H&P ---
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 coming from the GI most likely pancreatobiliary currently getting the chemotherapy per oncology also have a metastasis in the bone and the lymphoma recently complaining some cough congestion for the last 1 week and a running a fever and not feeling well Today's went to the oncology office patient was very weak and dehydrated and oncology called and sent the patient here for hospital admissions When I saw the patient's patient have a 99 fever and patients are tachycardic weak but alert awake oriented x4 Patient's at this point decided to admit in the hospital Patient's denied any chest pain just the cough no short of breath no hypoxia No abdominal pain no nausea no vomiting Discussed with the oncology scheduled for the CT of the chest abdomen pelvis tomorrow with IV contrast and p.o. contrast We will hydrate the patient's very well first Patient is currently considers himself is a full code and his next to him to make a decisions Discussed with the and the patient in the office and admitted directly in the hospital Patient's blood work this morning and oncology office was all stable Past Medical History Cardiac Medical History: Reports: Hyperlipidema, Hypertension Denies: Coronary Artery Disease, Myocardial Infarction Pulmonary Medical History: Reports: Chronic Obstructive Pulmonary Disease (COPD) Denies: Asthma, Bronchitis, Pneumonia Neurological Medical History: Denies: Seizures Renal/ Medical History: Reports: Chronic Kidney Disease Malignancy Medical History: Reports: Other - Stage IV carcinoma of unknown primary GI Medical History: Reports: Gastroesophageal Reflux Disease Denies: Hepatitis, Hiatal Hernia Musculoskeltal Medical History: Denies: Arthritis Hematology: Denies: Anemia, Sickle Cell Disease Past Surgical History Past Surgical History: Reports: Other - Nephrectomy, adrenalectomy Denies: Pacemaker Social History Information Source: Patient Smoking Status: Former Smoker Electronic Cigarette use?: No Frequency of Alcohol Use: None Hx Recreational Drug Use: No Drugs: None Hx Prescription Drug Abuse: No - Advance Directive Resuscitation Status: Full Code Family History Family History: Reviewed & Not Pertinent Parental Family History Reviewed: Yes Children Family History Reviewed: Yes Sibling(s) Family History Reviewed.: Yes Medication/Allergy Home Medications: Cetirizine HCl [Zyrtec 10 mg Chewable Tab] 1 tab PO DAILY 12/28/18 Esomeprazole Magnesium [Nexium] 20 mg PO DAILY 12/28/18 Montelukast Sodium [Singulair 10 mg Tablet] 10 mg PO DAILY 12/28/18 Tiotropium [place] [Spiriva Handihaler 5 Cap/Kit (18 Mcg/Cap)] 1 cap PO DAILY 12/28/18 Fluticasone/Salmeterol [Advair 250-50 Diskus 14 Dose/Diskus] 1 inh IH DAILY 01/04/19 Calcium Carbonate [Calcium] 1,200 mg PO BID 05/10/19 Cholecalciferol (Vitamin D3) [Vitamin D3] 25 mcg PO DAILY 05/10/19 Megestrol Acetate [Megace Valery 400 mg/10 ml Udcup] 400 mg PO DAILY 05/10/19 Oxycodone HCl [Oxycodone HCl ER] 20 mg PO Q12 05/10/19 Pantoprazole Sodium 20 mg PO DAILY 05/10/19 Potassium Chloride [Klor-Con] 20 meq PO DAILY 05/10/19 Allergies/Adverse Reactions: No Known Allergies Allergy (Verified 01/19/19 05:57) Review of Systems Constitutional: PRESENT: fatigue, fever(s), weakness. ABSENT: chills, headache(s), weight gain, weight loss Eyes: ABSENT: visual disturbances Ears: ABSENT: hearing changes Cardiovascular: ABSENT: chest pain, dyspnea on exertion, edema, orthropnea, palpitations Respiratory: PRESENT: cough. ABSENT: hemoptysis Gastrointestinal: ABSENT: abdominal pain, constipation, diarrhea, hematemesis, hematochezia, nausea, vomiting Genitourinary: ABSENT: dysuria, hematuria Musculoskeletal: ABSENT: joint swelling Integumentary: ABSENT: rash, wounds Neurological: ABSENT: abnormal gait, abnormal speech, confusion, dizziness, fo bebo weakness, syncope Psychiatric: ABSENT: anxiety, depression, homidical ideation, suicidal ideation Endocrine: ABSENT: cold intolerance, heat intolerance, menstrual abnormalities, polydipsia, polyuria Hematologic/Lymphatic: ABSENT: easy bleeding, easy bruising, lymphadenopathy Physical Exam Vital Signs: Temp Pulse Resp BP Pulse Ox 98.4 F 93 22 H 112/73 98 05/11/19 00:00 05/11/19 08:33 05/11/19 08:33 05/11/19 00:00 05/11/19 08:33 Intake & Output 05/10/19 05/11/19 05/12/19 06:59 06:59 06:59 Intake Total 3159 Output Total 300 Balance 2859 Weight 47.2 kg General appearance: PRESENT: no acute distress, well-developed, well-nourished Head exam: PRESENT: atraumatic, normocephalic Eye exam: PRESENT: conjunctiva pink, EOMI, PERRLA. ABSENT: scleral icterus Ear exam: PRESENT: normal external ear exam Mouth exam: PRESENT: moist, tongue midline Neck exam: PRESENT: full ROM. ABSENT: carotid bruit, JVD, lymphadenopathy, thyromegaly Respiratory exam: PRESENT: clear to auscultation elsa Cardiovascular exam: PRESENT: RRR. ABSENT: diastolic murmur, rubs, systolic murmur Pulses: PRESENT: normal dorsalis pedis pul, +2 pedal pulses bilateral Vascular exam: PRESENT: normal capillary refill GI/Abdominal exam: PRESENT: normal bowel sounds, soft. ABSENT: distended, guarding, mass, organolmegaly, rebound, tenderness Rectal exam: PRESENT: deferred Extremities exam: ABSENT: pedal edema Musculoskeletal exam: PRESENT: ambulatory Neurological exam: PRESENT: alert, awake, oriented to person, oriented to place, oriented to time, oriented to situation, CN II-XII grossly intact. ABSENT: motor sensory deficit Psychiatric exam: PRESENT: appropriate affect, normal mood. ABSENT: homicidal ideation, suicidal ideation Skin exam: PRESENT: dry, intact, warm. ABSENT: cyanosis, rash Results Laboratory Results: 05/11/19 04:56 05/11/19 04:56 05/11/19 05/11/19 04:56 04:56 WBC 2.3 L RBC 3.39 L Hgb 11.3 L Hct 32.3 L MCV 95 MCH 33.2 MCHC 34.8 RDW 21.0 H Plt Count 50 L Seg Neutrophils % Not Reportable Sodium 134.7 L Potassium 4.0 Chloride 111 H Carbon Dioxide 17 L Anion Gap 7 BUN 17 Creatinine 0.89 Est GFR ( Amer) > 60 Glucose 92 Calcium 6.8 L* Magnesium 1.9 Total Bilirubin 0.6 AST 57 Alkaline Phosphatase 58 Total Protein 4.9 L Albumin 2.3 L Impressions: Chest X-Ray 05/10/19 11:56 IMPRESSION: Nodule versus infiltrate right upper lobe superimposed on the permanent central line Assessment & Plan - Diagnosis (1) Pneumonia involving right lung Qualifiers: Pneumonia type: due to unspecified organism Lung location: middle lobe of lung Qualified Code(s): J18.9 - Pneumonia, unspecified organism Is this a current diagnosis for this admission?: Yes Plan: Start the patient on IV antibiotics and nebulizer treatments (2) Chronic obstructive pulmonary disease Qualifiers: COPD type: unspecified COPD Qualified Code(s): J44.9 - Chronic obstructive pulmonary disease, unspecified Is this a current diagnosis for this admission?: Yes Plan: Continues on nebulizer treatments (3) History of renal cell carcinoma Is this a current diagnosis for this admission?: Yes Plan: Status post nephrectomy (4) History of prostate cancer Is this a current diagnosis for this admission?: Yes Plan: Status post prostatectomy (5) Acute dehydration Is this a current diagnosis for this admission?: Yes Plan: Start the patient on IV fluids (6) Carcinoma metastatic to bone with unknown primary site Is this a current diagnosis for this admission?: Yes Plan: Follow-up with oncology (7) Hypocalcemia Is this a current diagnosis for this admission?: Yes Plan: Continues to p.o. calciums patient albumin is low corrected calcium is okay (8) Pain, neoplasm-related Is this a current diagnosis for this admission?: Yes Plan: Continues the pain management per oncology (9) Pancytopenia Is this a current diagnosis for this admission?: Yes Plan: Follow-up with oncology - Time Time Spent: 50 to 70 Minutes Medications reviewed and adjusted accordingly: Yes Anticipated discharge: Home Within: Other - Inpatient Certification Based on my medical assessment, after consideration of the patient's comorbidities, presenting symptoms, or acuity I expect that the services needed warrant INPATIENT care.: Yes I certify that my determination is in accordance with my understanding of Medicare's requirements for reasonable and necessary INPATIENT services [42 CFR 412.3e].: Yes Medical Necessity: Failure to Improve With Outpatient Therapy, Need For IV Fluids, Need for IV Antibiotics Post Hospital Care: D/C [employer] Documentation - Plan Summary Plan Summary: Discussed with the patient and the regarding the patient's current condi tion discussed with the oncology see orders
[2019-05-11] MEDS ORDERED: (PENDING PHARMACY ID) (Tiotropium Bromide [Spiriva Handihaler 5 Cap/Kit (18 Mcg/Cap)] 1 CA PO SCH (10:00)
[2019-05-11] MEDS ORDERED: (PENDING PHARMACY ID) (Fluticasone/Salmeterol 1 INH) IH SCH (10:00)
--- NOTE | 2019-05-11 11:24 | RADIOLOGY REPORT (SQ) ---
EXAM DESCRIPTION: CT ABD/PELVIS WITH IV ORAL COMPLETED DATE/TIME: 05/11/2019 10:00 am REASON FOR STUDY: panceratic cancer N39.0 URINARY TRACT INFECTION, SITE NOT SPECIFIED D50.8 OTHER IRON DEFICIENCY ANEMIAS COMPARISON: 01/06/2019 TECHNIQUE: CT scan of the abdomen and pelvis performed using helical scanning technique with dynamic intravenous contrast injection. No oral contrast. Images reviewed with lung, soft tissue, and bone windows. Reconstructed coronal and sagittal MPR images reviewed. Delayed images for evaluation of the urinary system also acquired. All images stored on PACS. All CT scanners at this facility use dose modulation, iterative reconstruction, and/or weight based d osing when appropriate to reduce radiation dose to as low as reasonably achievable (ALARA). [facility]: Dose Right [facility]: CareDose [facility]: Dose Right [facility]: Teradose 4D [facility]: ParkingCarma CONTRAST TYPE AND DOSE: contrast/concentration: Isovue 350.00 mg/ml; Total Contrast Delivered: 54.0 ml; Total Saline Delivered: 65.0 ml RENAL FUNCTION: BUN 17, creatinine 0.89 RADIATION DOSE: . LIMITATIONS: None. FINDINGS: LOWER CHEST: Please refer is the chest CT for discussion. Right lower lobe airspace disea se. Ground-glass nodule demonstrated on series 3, image 6. This measures 4.7 mm in diameter. This is stable from prior study. LIVER: Stable lesion in the right hepatic lobe consistent with hemangioma. No new findings. SPLEEN: Normal size. No focal lesions. PANCREAS: No masses. No significant calcifications. No adjacent inflammation or peripancreatic fluid collections. Pancreatic duct not dilated. GALLBLADDER: No identified stones by CT criteria. No inflammatory changes to suggest cholecystitis. ADRENAL GLANDS: Stable fullness of the right adrenal gland. RIGHT KIDNEY AND URETER: Prior right nephrectomy. LEFT KIDNEY AND URETER: No solid masses. Small hypoattenuating lesion most consistent with cysts. I t is too small to accurately characterize but is stable. No significant calcifications. No hydron ephrosis or hydroureter. AORTA AND VESSELS: No aneurysm. No dissection. Renal arteries, SMA, celiac without stenosis. RETROPERITONEUM: Occasional small retroperitoneal lymph node. These are nonspecific could be reactiv e or neoplastic. No significant change from prior exam. BOWEL AND PERITONEAL CAVITY: No masses or inflammatory changes. No free fluid or peritoneal masses. Scattered diverticuli in the sigmoid colon. No acute diverticulitis. APPENDIX: Normal in appearance. PELVIS: No mass. No free fluid. Normal bladder. ABDOMINAL WALL: No masses. No hernias. BONES: No significant or acute findings. OTHER: No other significant finding. IMPRESSION: 1. Lung findings as described above please refer to chest CT for further discussion. 2. Stable hemangioma in the right lobe of liver. 3. Small nonspecific periaortic lymph nodes stable in appearance. TECHNICAL DOCUMENTATION: JOB ID: [id number] Quality ID # [id number]: Final reports with documentation of one or more dose reduction techniques (e.g., Au tomated exposure control, adjustment of the mA and/or kV according to patient size, use of iterative reconstruction technique) 2010 [employer]- All Rights Reserved Reading location - IP/workstation name: [email or web address]
--- NOTE | 2019-05-11 12:32 | RADIOLOGY REPORT (SQ) ---
EXAM DESCRIPTION: CT CHEST WITH COMPLETED DATE/TIME: 05/11/2019 12:03 pm REASON FOR STUDY: ORAL CONTRAST ONLY, COUGH N39.0 URINARY TRACT INFECTION, SITE NOT SPECIFIED D50.8 OTHER IRON DEFICIENCY ANEMIAS COMPARISON: 12/16/2018 TECHNIQUE: CT scan of the chest performed using helical scanning technique with dynamic intravenous contrast injection. Images reviewed with lung, soft tissue and bone windows. Reconstructed coronal and sagittal MPR and MIP images reviewed. All images stored on PACS. All CT scanners at this facility use dose modulation, iterative reconstruction, and/or weight based d osing when appropriate to reduce radiation dose to as low as reasonably achievable (ALARA). [facility]: Dose Right [facility]: CareDose [facility]: Dose Right [facility]: Teradose 4D [facility]: [employer] CONTRAST TYPE AND DOSE: 54 mL Omnipaque 350 RENAL FUNCTION: BUN 17, creatinine 0.89 RADIATION DOSE: CT Rad equipment meets quality standard of care and radiation dose reduction techniq ues were employed. CTDIvol: 4.5 - 5.1 mGy. DLP: 658 mGy-cm. . LIMITATIONS: None. FINDINGS: LUNGS AND PLEURA: The right upper lobe mass now measures 1.6 x 1.4 cm slightly improved fr om prior exam. This is best demonstrated on series 6, image 35. The larger mass more anteriorly in the right upper lobe is measured at 2.0 x 2.2 cm compared to 2.6 x 3.0 cm on prior study. This is be st demonstrated on series 6, image 48. There is new pleural thickening in the right base with a smal l associated nodule. The nodule is spiculated and measures 8.5 x 9.9 mm in greatest diameter. There are bilateral emphysematous changes. There is bronchiectasis. HILAR AND MEDIASTINAL STRUCTURES: Stable pretracheal and precarinal lymph nodes. Stable right hilar adenopathy. HEART AND VASCULAR STRUCTURES: No aneurysm or dissection. There is a small left-sided central pulmon shannon embolus new from prior study. HARDWARE: [id number] is in place. UPPER ABDOMEN: Please see CT abdomen pelvis for complete discussion. Stable right hepatic lesion. THYROID AND OTHER SOFT TISSUES: No masses. No adenopathy. BONES: Stable in appearance. OTHER: No other significant finding. IMPRESSION: 1. The 2 right upper lobe pulmonary masses have decreased in size since prior study. T here is a new 8.5 x 9.9 mm spiculated nodule in the right base with associated pleural thickening. 2. Stable bilateral emphysematous changes. 3. Stable pretracheal and right hilar adenopathy. TECHNICAL DOCUMENTATION: JOB ID: [id number] Quality ID # [id number]: Final reports with documentation of one or more dose reduction techniques (e.g., Au tomated exposure control, adjustment of the mA and/or kV according to patient size, use of iterative reconstruction technique) 2010 [employer]- All Rights Reserved Reading location - IP/workstation name: [email or web address]
[2019-05-11] MEDS: GUAIFENESIN SYRP 200 MG/10 ML UDC PO PRN ×2 (13:26→21:08)
[2019-05-11] MEDS: BENZONATATE 100 MG CAPSULE PO SCH ×2 (17:55→21:08)
[2019-05-11] MEDS: METHYLPREDNISOLONE INJ 40 MG/1 ML SDV IV SCH (21:08)
[2019-05-12] MEDS: IPRATROPIUM/ALBUTEROL 0.5-2.5 MG/3 ML AMPUL NEB SCH ×4 (01:23→21:05)
[2019-05-12] MEDS ORDERED: CEFEPIME HCL 2 GM in DEXTROSE 5%-WATER 50 ML IV SCH ×2 (06:00→10:00)
[2019-05-12] MEDS: GUAIFENESIN SYRP 200 MG/10 ML UDC PO PRN (06:26)
[2019-05-12] MEDS: BENZONATATE 100 MG CAPSULE PO SCH ×3 (06:26→21:08)
[2019-05-12 07:18] LABS: ABSOLUTE LYMPHOCYTES (AUTO) 0.2 10^3/uL (0.5-4.7); ABSOLUTE NEUT (AUTO) 0.8 10^3/uL (1.7-8.2); BASOPHILS % (AUTO) 0.2 % (0-2); HEMATOCRIT 34.7 % (37.9-51.0); HEMOGLOBIN 11.9 g/dL (13.5-17.0); LYMPHOCYTES % (AUTO) 22.3 % (13-45); MEAN CORPUSCULAR HEMOGLOBIN 33.1 pg (27.0-33.4); MEAN CORPUSCULAR HGB CONC 34.4 g/dL (32.0-36.0); MEAN CORPUSCULAR VOLUME 96 fl (80-97); MONOCYTES % (AUTO) 1.4 % (3-13); RED CELL DISTRIBUTION WIDTH 20.3 % (11.5-14.0); SEGMENTED NEUTROPHILS % (AUTO) 76.1 % (42-78); TOTAL CELLS COUNTED % (AUTO) 100 %
--- NOTE | 2019-05-12 08:19 | PDOC PROGRESS REPORT ---
Subjective Progress Note for:: 05/12/19 Subjective:: Patient is feeling much better Since starting the steroid cough is also improving Patient's sputum cultures positive for Pseudomonas which is more sensitive to the Levaquin than the cefepime Reason For Visit: DEHYDRATION, RENAL CALL CA, COUGH, FEVER Physical Exam Vital Signs: Temp Pulse Resp BP Pulse Ox 98.7 F 82 18 129/83 H 97 05/11/19 23:28 05/12/19 01:24 05/12/19 01:24 05/11/19 23:28 05/12/19 01:24 Intake & Output 05/11/19 05/12/19 05/13/19 06:59 06:59 06:59 Intake Total 3159 3615 927 Output Total 300 Balance 2859 3615 927 Weight 47.2 kg 46.8 kg General appearance: PRESENT: no acute distress, well-developed, well-nourished Head exam: PRESENT: atraumatic, normocephalic Eye exam: PRESENT: conjunctiva pink, EOMI, PERRLA. ABSENT: scleral icterus Ear exam: PRESENT: normal external ear exam Mouth exam: PRESENT: moist, tongue midline Neck exam: PRESENT: full ROM. ABSENT: carotid bruit, JVD, lymphadenopathy, thyromegaly Respiratory exam: PRESENT: clear to auscultation elsa Cardiovascular exam: PRESENT: RRR. ABSENT: diastolic murmur, rubs, systolic murmur Pulses: PRESENT: normal dorsalis pedis pul, +2 pedal pulses bilateral Vascular exam: PRESENT: normal capillary refill GI/Abdominal exam: PRESENT: normal bowel sounds, soft. ABSENT: distended, guarding, mass, organolmegaly, rebound, tenderness Rectal exam: PRESENT: deferred Musculoskeletal exam: PRESENT: ambulatory Neurological exam: PRESENT: alert, awake, oriented to person, oriented to place, oriented to time, oriented to situation, CN II-XII grossly intact. ABSENT: motor sensory deficit Psychiatric exam: PRESENT: appropriate affect, normal mood. ABSENT: homicidal ideation, suicidal ideation Skin exam: PRESENT: dry, intact, warm. ABSENT: cyanosis, rash Results Laboratory Results: 05/11/19 04:56 05/12/19 05:43 Magnesium 1.8 05/10/19 14:17 Sputum Gram Stain - Final Impressions: Chest X-Ray 05/10/19 11:56 IMPRESSION: Nodule versus infiltrate right upper lobe superimposed on the permanent central line Abdomen/Pelvis CT 05/11/19 00:00 IMPRESSION: 1. Lung findings as described above please refer to chest CT for further discussion. 2. Stable hemangioma in the right lobe of liver. 3. Small nonspecific periaortic lymph nodes stable in appearance. Chest CT 05/11/19 06:00 IMPRESSION: 1. The 2 right upper lobe pulmonary masses have decreased in size since prior study. There is a new 8.5 x 9.9 mm spiculated nodule in the right base with associated pleural thickening. 2. Stable bilateral emphysematous changes. 3. Stable pretracheal and right hilar adenopathy. Assessment & Plan - Diagnosis (1) Pneumonia involving right lung Qualifiers: Pneumonia type: due to unspecified organism Lung location: middle lobe of lung Qualified Code(s): J18.9 - Pneumonia, unspecified organism Is this a current diagnosis for this admission?: Yes Plan: Discontinues IV antibiotic start of the p.o. Levaquin (2) Chronic obstructive pulmonary disease Qualifiers: COPD type: unspecified COPD Qualified Code(s): J44.9 - Chronic obstructive pulmonary disease, unspecified Is this a current diagnosis for this admission?: Yes Plan: Continues the nebulizer treatment and a steroid consider switch to the p.o. steroid tomorrow (3) History of renal cell carcinoma Is this a current diagnosis for this admission?: Yes (4) History of prostate cancer Is this a current diagnosis for this admission?: Yes (5) Acute dehydration Is this a current diagnosis for this admission?: Yes (6) Carcinoma metastatic to bone with unknown primary site Is this a current diagnosis for this admission?: Yes (7) Hypocalcemia Is this a current diagnosis for this admission?: Yes (8) Pain, neoplasm-related Is this a current diagnosis for this admission?: Yes (9) Pancytopenia Is this a current diagnosis for this admission?: Yes - Time Time Spent with patient: 25-34 minutes Level of Care: MEDICAL Medications reviewed and adjusted accordingly: Yes Anticipated discharge: Home, Other Within: Other - Plan Summary Plan Summary: Continues to current medications
[2019-05-12 08:28] LABS: PLATELET COUNT 46 10^3/uL (150-450)
[2019-05-12 08:33] LABS: ANISOCYTOSIS 2+; POIKILOCYTOSIS SLIGHT; TOXIC GRANULATION 1+
[2019-05-12 08:34] LABS: PLATELET COMMENT DECREASED; PLATELET LARGE PRESENT; TEAR DROP CELLS SLIGHT
[2019-05-12] MEDS: CALCIUM CARBONATE 600 MG TABLET PO SCH ×2 (09:31→17:00)
[2019-05-12] MEDS: MONTELUKAST SODIUM 10 MG TABLET PO SCH (09:32)
[2019-05-12] MEDS: FAMOTIDINE 20 MG TABLET PO SCH ×2 (09:32→21:08)
[2019-05-12] MEDS: FILGRASTIM INJ 480 MCG/1.6 ML VIAL SUBCUT SCH (09:32)
[2019-05-12] MEDS: DOCUSATE SODIUM 100 MG CAPSULE PO SCH ×2 (09:32→17:00)
[2019-05-12] MEDS: METHYLPREDNISOLONE INJ 40 MG/1 ML SDV IV SCH ×2 (09:32→21:08)
[2019-05-12] MEDS: LEVOFLOXACIN 500 MG TABLET PO SCH (09:34)
[2019-05-12] MEDS: FLUTICASONE/VILANTEROL 200-25 MCG/DOSE IH SCH (09:36)
[2019-05-12] MEDS: UMECLIDINIUM BROMIDE 62.5 MCG/DOSE IH SCH (09:36)
[2019-05-12 11:34] LABS: PATH REVIEW PATHOLOGIST REVIEWED
[2019-05-12] MEDS: NORMAL SALINE 1000 ML 1,000 ML IV PRN (11:59)
--- NOTE | 2019-05-12 13:03 | PDOC PROGRESS REPORT ---
Subjective Progress Note for:: 05/12/19 Subjective:: Patient had cough all night. Did not sleep well. Family is at bedside this morning. Reason For Visit: DEHYDRATION, RENAL CALL CA, COUGH, FEVER Physical Exam Vital Signs: Temp Pulse Resp BP Pulse Ox 98.2 F 90 17 152/86 H 100 05/12/19 11:29 05/12/19 11:29 05/12/19 11:29 05/12/19 11:29 05/12/19 11:29 Intake & Output 05/11/19 05/12/19 05/13/19 06:59 06:59 06:59 Intake Total 3159 3615 1560 Output Total 300 375 Balance 2859 3615 1185 Weight 47.2 kg 46.8 kg General appearance: PRESENT: no acute distress, thin Head exam: PRESENT: normocephalic Respiratory exam: PRESENT: unlabored Neurological exam: PRESENT: alert, awake Psychiatric exam: PRESENT: appropriate affect Skin exam: PRESENT: normal color Results Laboratory Results: 05/12/19 05:43 05/11/19 04:56 05/12/19 05/12/19 05:43 05:43 WBC 1.0 L* D RBC 3.60 L Hgb 11.9 L Hct 34.7 L MCV 96 MCH 33.1 MCHC 34.4 RDW 20.3 H Plt Count 46 L Seg Neutrophils % 76.1 Magnesium 1.8 05/10/19 15:21 Clean Catch Midstream Urine Culture - Final NO GROWTH 2 DAYS 05/10/19 14:17 Sputum Gram Stain - Final Impressions: Chest X-Ray 05/10/19 11:56 IMPRESSION: Nodule versus infiltrate right upper lobe superimposed on the permanent central line Abdomen/Pelvis CT 05/11/19 00:00 IMPRESSION: 1. Lung findings as described above please refer to chest CT for further discussion. 2. Stable hemangioma in the right lobe of liver. 3. Small nonspecific periaortic lymph nodes stable in appearance. Chest CT 05/11/19 06:00 IMPRESSION: 1. The 2 right upper lobe pulmonary masses have decreased in size since prior study. There is a new 8.5 x 9.9 mm spiculated nodule in the right base with associated pleural thickening. 2. Stable bilateral emphysematous changes. 3. Stable pretracheal and right hilar adenopathy. Assessment & Plan - Diagnosis (1) Acute dehydration Is this a current diagnosis for this admission?: Yes Plan: Continue IV fluids. Encouraged PO intake. (2) Carcinoma metastatic to bone with unknown primary site Is this a current diagnosis for this admission?: Yes Plan: Treatment currently on hold. Will discuss further treatment as outpatient. (3) Pneumonia involving right lung Qualifiers: Pneumonia type: due to unspecified organism Lung location: middle lobe of lung Qualified Code(s): J18.9 - Pneumonia, unspecified organism Is this a current diagnosis for this admission?: Yes Plan: On appropriate antibiotics. (4) Pancytopenia Is this a current diagnosis for this admission?: Yes Plan: Most likely due to cancer treatment. No indication for transfusion a this time. Will continue to monitor. - Time Time Spent with patient: Less than 15 minutes
[2019-05-12] MEDS: CEFEPIME 1 GM/D5W RTU 1 GM/50 ML RTUPB IV SCH (21:07)
[2019-05-13] MEDS: IPRATROPIUM/ALBUTEROL 0.5-2.5 MG/3 ML AMPUL NEB SCH ×4 (01:17→20:02)
[2019-05-13] MEDS: BENZONATATE 100 MG CAPSULE PO SCH ×3 (06:20→21:07)
[2019-05-13 06:58] LABS: HEMATOCRIT 36.8 % (37.9-51.0); HEMOGLOBIN 12.9 g/dL (13.5-17.0); MEAN CORPUSCULAR HEMOGLOBIN 33.2 pg (27.0-33.4); MEAN CORPUSCULAR HGB CONC 35.1 g/dL (32.0-36.0); MEAN CORPUSCULAR VOLUME 95 fl (80-97); RED BLOOD COUNT 3.89 10^6/uL (4.35-5.55); RED CELL DISTRIBUTION WIDTH 20.3 % (11.5-14.0)
[2019-05-13 07:08] LABS: ANION GAP 9 (5-19); BLOOD UREA NITROGEN 17 mg/dL (7-20); CALCIUM 9.6 mg/dL (8.4-10.2); CARBON DIOXIDE 23 mmol/L (22-30); CHLORIDE 105 mmol/L (98-107); GLUCOSE 128 mg/dL (75-110); POTASSIUM 4.5 mmol/L (3.6-5.0)
--- NOTE | 2019-05-13 07:51 | PDOC PROGRESS REPORT ---
Subjective Progress Note for:: 05/13/19 Subjective:: Pt doing well this am, received neupogen yesterday, wt ct pending this am Reason For Visit: DEHYDRATION, RENAL CALL CA, COUGH, FEVER Physical Exam Vital Signs: Temp Pulse Resp BP Pulse Ox 98.0 F 111 H 16 148/97 H 97 05/13/19 00:16 05/13/19 01:19 05/13/19 01:19 05/13/19 00:16 05/13/19 01:19 Intake & Output 05/12/19 05/13/19 05/14/19 06:59 06:59 06:59 Intake Total 3615 2083 Output Total 375 Balance 3615 1708 Weight 46.8 kg 47 kg Results Laboratory Results: 05/13/19 05:27 05/12/19 05/13/19 05:43 05:27 WBC 1.0 L* D RBC 3.60 L Hgb 11.9 L Hct 34.7 L MCV 96 MCH 33.1 MCHC 34.4 RDW 20.3 H Plt Count 46 L Seg Neutrophils % 76.1 Sodium 136.9 L Potassium 4.5 Chloride 105 Carbon Dioxide 23 Anion Gap 9 BUN 17 Creatinine 0.94 Est GFR ( Amer) > 60 Glucose 128 H Calcium 9.6 Magnesium 1.9 05/10/19 15:21 Clean Catch Midstream Urine Culture - Final NO GROWTH 2 DAYS 05/10/19 14:17 Sputum Gram Stain - Final Impressions: Chest X-Ray 05/10/19 11:56 IMPRESSION: Nodule versus infiltrate right upper lobe superimposed on the permanent central line Abdomen/Pelvis CT 05/11/19 00:00 IMPRESSION: 1. Lung findings as described above please refer to chest CT for further discussion. 2. Stable hemangioma in the right lobe of liver. 3. Small nonspecific periaortic lymph nodes stable in appearance. Chest CT 05/11/19 06:00 IMPRESSION: 1. The 2 right upper lobe pulmonary masses have decreased in size since prior study. There is a new 8.5 x 9.9 mm spiculated nodule in the right base with associated pleural thickening. 2. Stable bilateral emphysematous changes. 3. Stable pretracheal and right hilar adenopathy. Status: Image reviewed by me Assessment & Plan - Diagnosis (1) Pneumonia involving right lung Qualifiers: Pneumonia type: due to Pseudomonas Lung location: middle lobe of lung Qualified Code(s): J15.1 - Pneumonia due to Pseudomonas Is this a current diagnosis for this admission?: Yes Plan: Pseudomonas pneumonia likely, on approp atbx currently. Will need 10-14 day coverage. (2) Carcinoma metastatic to bone with unknown primary site Is this a current diagnosis for this admission?: Yes Plan: Restaging imaging indicates improved overall disease status, will cont as outpt but will need neulasta support for next cycle (3) Pancytopenia Is this a current diagnosis for this admission?: Yes Plan: Cont w/ neupogen until ANC >1000 (4) Hypocalcemia Is this a current diagnosis for this admission?: Yes Plan: Improved (5) Pain, neoplasm-related Is this a current diagnosis for this admission?: Yes Plan: Cont current home regimen - Time Time Spent with patient: 35 or more minutes
[2019-05-13 08:26] LABS: PLATELET COUNT 45 10^3/uL (150-450)
[2019-05-13 08:29] LABS: ABSOLUTE LYMPHOCYTES# (MANUAL) 0.3 10^3/uL (0.5-4.7); ABSOLUTE MONOCYTES # (MANUAL) 0.1 10^3/uL (0.1-1.4); BAND NEUTROPHILS % (MANUAL) 2 % (3-5); BASOPHILS % (MANUAL) 0 % (0-2); EOSINOPHILS % (MANUAL) 0 % (0-6); LYMPHOCYTES % (MANUAL) 22 % (13-45); MONOCYTES % (MANUAL) 8 % (3-13); NUCLEATED RED BLOOD CELLS 2 /100 WBC (0); SEGMENTED NEUTROPHILS % (MAN) 68 % (42-78); TOTAL CELLS COUNTED 50
[2019-05-13 08:31] LABS: ANISOCYTOSIS 2+; BURR CELLS SLIGHT; PLATELET COMMENT DECREASED; PLATELET LARGE PRESENT; POIKILOCYTOSIS SLIGHT; POLYCHROMASIA SLIGHT; SCHISTOCYTES SLIGHT; TEAR DROP CELLS SLIGHT; TOXIC GRANULATION 1+
[2019-05-13 08:33] LABS: WHITE BLOOD COUNT 1.4 10^3/uL (4.0-10.5)
[2019-05-13] MEDS: GUAIFENESIN SYRP 200 MG/10 ML UDC PO PRN (10:04)
[2019-05-13] MEDS: METHYLPREDNISOLONE INJ 40 MG/1 ML SDV IV SCH (10:04)
[2019-05-13] MEDS: CALCIUM CARBONATE 600 MG TABLET PO SCH ×2 (10:05→17:43)
[2019-05-13] MEDS: MONTELUKAST SODIUM 10 MG TABLET PO SCH (10:05)
[2019-05-13] MEDS: FAMOTIDINE 20 MG TABLET PO SCH ×2 (10:05→21:07)
[2019-05-13] MEDS: DOCUSATE SODIUM 100 MG CAPSULE PO SCH ×2 (10:05→17:43)
[2019-05-13] MEDS: LEVOFLOXACIN 500 MG TABLET PO SCH (10:05)
[2019-05-13] MEDS: FLUTICASONE/VILANTEROL 200-25 MCG/DOSE IH SCH (10:06)
[2019-05-13] MEDS: UMECLIDINIUM BROMIDE 62.5 MCG/DOSE IH SCH (10:06)
[2019-05-13] MEDS: CEFEPIME 1 GM/D5W RTU 1 GM/50 ML RTUPB IV SCH ×2 (10:07→21:07)
[2019-05-13] MEDS: FILGRASTIM INJ 480 MCG/1.6 ML VIAL SUBCUT SCH (10:07)
[2019-05-13] MEDS: NORMAL SALINE 1000 ML 1,000 ML IV PRN (10:24)
--- NOTE | 2019-05-13 12:56 | PDOC PROGRESS REPORT ---
Subjective Progress Note for:: 05/13/19 Subjective:: Patient is feeling much better No cough no congestions No fever no chills Patient is received a Neupogen his white count goes up to 1.4 Reason For Visit: DEHYDRATION, RENAL CALL CA, COUGH, FEVER Physical Exam Vital Signs: Temp Pulse Resp BP Pulse Ox 97.9 F 100 20 159/90 H 99 05/13/19 12:00 05/13/19 12:00 05/13/19 12:00 05/13/19 12:00 05/13/19 12:00 Intake & Output 05/12/19 05/13/19 05/14/19 06:59 06:59 06:59 Intake Total 3615 2083 1000 Output Total 375 Balance 3615 1708 1000 Weight 46.8 kg 47 kg General appearance: PRESENT: no acute distress, well-developed, well-nourished Head exam: PRESENT: atraumatic, normocephalic Eye exam: PRESENT: conjunctiva pink, EOMI, PERRLA. ABSENT: scleral icterus Ear exam: PRESENT: normal external ear exam Mouth exam: PRESENT: moist, tongue midline Neck exam: PRESENT: full ROM. ABSENT: carotid bruit, JVD, lymphadenopathy, thyromegaly Respiratory exam: PRESENT: clear to auscultation elsa Cardiovascular exam: PRESENT: RRR. ABSENT: diastolic murmur, rubs, systolic murmur Pulses: PRESENT: normal dorsalis pedis pul, +2 pedal pulses bilateral Vascular exam: PRESENT: normal capillary refill GI/Abdominal exam: PRESENT: normal bowel sounds, soft. ABSENT: distended, guarding, mass, organolmegaly, rebound, tenderness Rectal exam: PRESENT: deferred Musculoskeletal exam: PRESENT: ambulatory Neurological exam: PRESENT: alert, awake, oriented to person, oriented to place, oriented to time, oriented to situation, CN II-XII grossly intact. ABSENT: motor sensory deficit Psychiatric exam: PRESENT: appropriate affect, normal mood. ABSENT: homicidal ideation, suicidal ideation Skin exam: PRESENT: dry, intact, warm. ABSENT: cyanosis, rash Results Laboratory Results: 05/13/19 05:27 05/13/19 05:27 05/13/19 05/13/19 05:27 05:27 WBC 1.4 L* RBC 3.89 L Hgb 12.9 L Hct 36.8 L MCV 95 MCH 33.2 MCHC 35.1 RDW 20.3 H Plt Count 45 L Seg Neutrophils % Not Reportable Sodium 136.9 L Potassium 4.5 Chloride 105 Carbon Dioxide 23 Anion Gap 9 BUN 17 Creatinine 0.94 Est GFR ( Amer) > 60 Glucose 128 H Calcium 9.6 Magnesium 1.9 05/10/19 14:17 Sputum Gram Stain - Final 05/10/19 14:17 Sputum Sputum Culture - Final Pseudomonas Aeruginosa Klebsiella Pneumoniae Morax.(Branhamella)Catarrhalis Normal Vanessa 05/10/19 15:21 Clean Catch Midstream Urine Culture - Final NO GROWTH 2 DAYS Impressions: Chest X-Ray 05/10/19 11:56 IMPRESSION: Nodule versus infiltrate right upper lobe superimposed on the permanent central line Abdomen/Pelvis CT 05/11/19 00:00 IMPRESSION: 1. Lung findings as described above please refer to chest CT for further discussion. 2. Stable hemangioma in the right lobe of liver. 3. Small nonspecific periaortic lymph nodes stable in appearance. Chest CT 05/11/19 06:00 IMPRESSION: 1. The 2 right upper lobe pulmonary masses have decreased in size since prior study. There is a new 8.5 x 9.9 mm spiculated nodule in the right base with associated pleural thickening. 2. Stable bilateral emphysematous changes. 3. Stable pretracheal and right hilar adenopathy. Assessment & Plan - Diagnosis (1) Pneumonia involving right lung Qualifiers: Pneumonia type: due to Pseudomonas Lung location: middle lobe of lung Qualified Code(s): J15.1 - Pneumonia due to Pseudomonas Is this a current diagnosis for this admission?: Yes Plan: Continues the IV antibiotics (2) Chronic obstructive pulmonary disease Qualifiers: COPD type: unspecified COPD Qualified Code(s): J44.9 - Chronic obstructive pulmonary disease, unspecified Is this a current diagnosis for this admission?: Yes Plan: Switch IV to the p.o. steroids (3) History of renal cell carcinoma Is this a current diagnosis for this admission?: Yes (4) History of prostate cancer Is this a current diagnosis for this admission?: Yes (5) Acute dehydration Is this a current diagnosis for this admission?: Yes (6) Carcinoma metastatic to bone with unknown primary site Is this a current diagnosis for this admission?: Yes (7) Hypocalcemia Is this a current diagnosis for this admission?: Yes (8) Pain, neoplasm-related Is this a current diagnosis for this admission?: Yes (9) Pancytopenia Is this a current diagnosis for this admission?: Yes Plan: Currently follow with hematology - Time Time Spent with patient: 15-24 minutes Level of Care: TELE Medications reviewed and adjusted accordingly: Yes Anticipated discharge: Home Within: Other - Plan Summary Plan Summary: Continues to current medications switch IV to the p.o. medications
[2019-05-13] MEDS: PREDNISONE 20 MG TABLET PO SCH (17:43)
[2019-05-14] MEDS: IPRATROPIUM/ALBUTEROL 0.5-2.5 MG/3 ML AMPUL NEB SCH ×4 (02:47→19:37)
[2019-05-14] MEDS: BENZONATATE 100 MG CAPSULE PO SCH ×3 (04:59→21:13)
[2019-05-14] MEDS: NORMAL SALINE 1000 ML 1,000 ML IV PRN (05:02)
[2019-05-14 06:10] LABS: ABSOLUTE LYMPHOCYTES (AUTO) 0.5 10^3/uL (0.5-4.7); ABSOLUTE NEUT (AUTO) 0.2 10^3/uL (1.7-8.2); BASOPHILS % (AUTO) 0.2 % (0-2); EOSINOPHILS % (AUTO) 0.1 % (0-6); HEMOGLOBIN 13.1 g/dL (13.5-17.0); LYMPHOCYTES % (AUTO) 68.5 % (13-45); MEAN CORPUSCULAR HEMOGLOBIN 32.8 pg (27.0-33.4); MEAN CORPUSCULAR HGB CONC 34.5 g/dL (32.0-36.0); MEAN CORPUSCULAR VOLUME 95 fl (80-97); MONOCYTES % (AUTO) 5.3 % (3-13); RED BLOOD COUNT 3.99 10^6/uL (4.35-5.55); RED CELL DISTRIBUTION WIDTH 20.1 % (11.5-14.0); SEGMENTED NEUTROPHILS % (AUTO) 25.9 % (42-78); TOTAL CELLS COUNTED % (AUTO) 100 %
[2019-05-14 06:24] LABS: PLATELET COUNT 53 10^3/uL (150-450)
[2019-05-14 06:31] LABS: ANISOCYTOSIS 2+; OVALOCYTES 1+; PLATELET COMMENT DECREASED; POIKILOCYTOSIS 1+; TEAR DROP CELLS 1+
[2019-05-14 06:32] LABS: ANION GAP 9 (5-19); BLOOD UREA NITROGEN 23 mg/dL (7-20); CALCIUM 10.6 mg/dL (8.4-10.2); CARBON DIOXIDE 25 mmol/L (22-30); CHLORIDE 103 mmol/L (98-107); GLUCOSE 119 mg/dL (75-110); POTASSIUM 4.4 mmol/L (3.6-5.0)
[2019-05-14 06:34] LABS: WHITE BLOOD COUNT 0.8 10^3/uL (4.0-10.5)
--- NOTE | 2019-05-14 10:16 | PDOC PROGRESS REPORT ---
Subjective Progress Note for:: 05/14/19 Subjective:: Patient is currently doing well Patient's white count is low No fever no chills Reason For Visit: DEHYDRATION, RENAL CALL CA, COUGH, FEVER Physical Exam Vital Signs: Temp Pulse Resp BP Pulse Ox 98.0 F 109 H 16 142/101 H 96 05/14/19 07:59 05/14/19 08:33 05/14/19 08:33 05/14/19 07:59 05/14/19 08:33 Intake & Output 05/13/19 05/14/19 05/15/19 06:59 06:59 06:59 Intake Total 2083 3242 Output Total 375 Balance 1708 3242 Weight 47 kg 55.5 kg General appearance: PRESENT: no acute distress, well-developed, well-nourished Head exam: PRESENT: atraumatic, normocephalic Eye exam: PRESENT: conjunctiva pink, EOMI, PERRLA. ABSENT: scleral icterus Ear exam: PRESENT: normal external ear exam Mouth exam: PRESENT: moist, tongue midline Neck exam: PRESENT: full ROM. ABSENT: carotid bruit, JVD, lymphadenopathy, thyromegaly Respiratory exam: PRESENT: clear to auscultation elsa Cardiovascular exam: PRESENT: RRR. ABSENT: diastolic murmur, rubs, systolic murmur Pulses: PRESENT: normal dorsalis pedis pul, +2 pedal pulses bilateral Vascular exam: PRESENT: normal capillary refill GI/Abdominal exam: PRESENT: normal bowel sounds, soft. ABSENT: distended, guarding, mass, organolmegaly, rebound, tenderness Rectal exam: PRESENT: deferred Neurological exam: PRESENT: alert, awake, oriented to person, oriented to place, oriented to time, oriented to situation, CN II-XII grossly intact. ABSENT: motor sensory deficit Psychiatric exam: PRESENT: appropriate affect, normal mood. ABSENT: homicidal ideation, suicidal ideation Skin exam: PRESENT: dry, intact, warm. ABSENT: cyanosis, rash Results Laboratory Results: 05/14/19 04:55 05/14/19 04:55 05/14/19 05/14/19 04:55 04:55 WBC 0.8 L* D RBC 3.99 L Hgb 13.1 L Hct 38.0 MCV 95 MCH 32.8 MCHC 34.5 RDW 20.1 H Plt Count 53 L Seg Neutrophils % 25.9 L Sodium 136.7 L Potassium 4.4 Chloride 103 Carbon Dioxide 25 Anion Gap 9 BUN 23 H Creatinine 1.06 Est GFR ( Amer) > 60 Glucose 119 H Calcium 10.6 H 05/10/19 14:17 Sputum Gram Stain - Final 05/10/19 14:17 Sputum Sputum Culture - Final Pseudomonas Aeruginosa Klebsiella Pneumoniae Morax.(Branhamella)Catarrhalis Normal Vanessa Impressions: Chest X-Ray 05/10/19 11:56 IMPRESSION: Nodule versus infiltrate right upper lobe superimposed on the permanent central line Abdomen/Pelvis CT 05/11/19 00:00 IMPRESSION: 1. Lung findings as described above please refer to chest CT for further discussion. 2. Stable hemangioma in the right lobe of liver. 3. Small nonspecific periaortic lymph nodes stable in appearance. Chest CT 05/11/19 06:00 IMPRESSION: 1. The 2 right upper lobe pulmonary masses have decreased in size since prior study. There is a new 8.5 x 9.9 mm spiculated nodule in the right base with associated pleural thickening. 2. Stable bilateral emphysematous changes. 3. Stable pretracheal and right hilar adenopathy. Assessment & Plan - Diagnosis (1) Pneumonia involving right lung Qualifiers: Pneumonia type: due to Pseudomonas Lung location: middle lobe of lung Qualified Code(s): J15.1 - Pneumonia due to Pseudomonas Is this a current diagnosis for this admission?: Yes Plan: Continues the IV antibiotics (2) Chronic obstructive pulmonary disease Qualifiers: COPD type: unspecified COPD Qualified Code(s): J44.9 - Chronic obstructive pulmonary disease, unspecified Is this a current diagnosis for this admission?: Yes Plan: Switch IV to the p.o. steroids (3) History of renal cell carcinoma Is this a current diagnosis for this admission?: Yes (4) History of prostate cancer Is this a current diagnosis for this admission?: Yes (5) Acute dehydration Is this a current diagnosis for this admission?: Yes (6) Carcinoma metastatic to bone with unknown primary site Is this a current diagnosis for this admission?: Yes (7) Hypocalcemia Is this a current diagnosis for this admission?: Yes (8) Pain, neoplasm-related Is this a current diagnosis for this admission?: Yes (9) Pancytopenia Is this a current diagnosis for this admission?: Yes - Time Time Spent with patient: 15-24 minutes Level of Care: TELE Medications reviewed and adjusted accordingly: Yes Anticipated discharge: Other Within: Other - Plan Summary Plan Summary: Continues to current medications
[2019-05-14] MEDS: LEVOFLOXACIN 500 MG TABLET PO SCH (10:50)
[2019-05-14] MEDS: PREDNISONE 20 MG TABLET PO SCH ×2 (10:50→18:04)
[2019-05-14] MEDS: CALCIUM CARBONATE 600 MG TABLET PO SCH ×2 (10:50→18:04)
[2019-05-14] MEDS: DOCUSATE SODIUM 100 MG CAPSULE PO SCH ×2 (10:50→18:04)
[2019-05-14] MEDS: FLUTICASONE/VILANTEROL 200-25 MCG/DOSE IH SCH (10:50)
[2019-05-14] MEDS: UMECLIDINIUM BROMIDE 62.5 MCG/DOSE IH SCH (10:50)
[2019-05-14] MEDS: FAMOTIDINE 20 MG TABLET PO SCH ×2 (10:50→21:14)
[2019-05-14] MEDS: MONTELUKAST SODIUM 10 MG TABLET PO SCH (10:51)
[2019-05-14] MEDS: CEFEPIME 1 GM/D5W RTU 1 GM/50 ML RTUPB IV SCH ×2 (10:51→21:14)
[2019-05-14] MEDS: FILGRASTIM INJ 480 MCG/1.6 ML VIAL SUBCUT SCH (10:51)
--- NOTE | 2019-05-14 11:34 | PDOC PROGRESS REPORT ---
Subjective Progress Note for:: 05/14/19 Subjective:: Patient is feeling better today but white count is dropped to 0.8. Reason For Visit: DEHYDRATION, RENAL CALL CA, COUGH, FEVER Physical Exam Vital Signs: Temp Pulse Resp BP Pulse Ox 98.0 F 109 H 16 142/101 H 96 05/14/19 07:59 05/14/19 08:33 05/14/19 08:33 05/14/19 07:59 05/14/19 08:33 Intake & Output 05/13/19 05/14/19 05/15/19 06:59 06:59 06:59 Intake Total 2083 3242 297 Output Total 375 Balance 1708 3242 297 Weight 47 kg 55.5 kg General appearance: PRESENT: no acute distress, well-developed, well-nourished Head exam: PRESENT: atraumatic, normocephalic Eye exam: PRESENT: conjunctiva pink, EOMI, PERRLA. ABSENT: scleral icterus Ear exam: PRESENT: normal external ear exam Mouth exam: PRESENT: moist, tongue midline Neck exam: ABSENT: carotid bruit, JVD, lymphadenopathy, thyromegaly Respiratory exam: PRESENT: clear to auscultation elsa. ABSENT: rales, rhonchi, wheezes Cardiovascular exam: PRESENT: RRR. ABSENT: diastolic murmur, rubs, systolic murmur Pulses: PRESENT: normal dorsalis pedis pul Vascular exam: PRESENT: normal capillary refill GI/Abdominal exam: PRESENT: normal bowel sounds, soft. ABSENT: distended, guarding, mass, organolmegaly, rebound, tenderness Rectal exam: PRESENT: deferred Extremities exam: PRESENT: full ROM. ABSENT: calf tenderness, clubbing, pedal edema Neurological exam: PRESENT: alert, awake, oriented to person, oriented to place, oriented to time, oriented to situation, CN II-XII grossly intact. ABSENT: motor sensory deficit Psychiatric exam: PRESENT: appropriate affect, normal mood. ABSENT: homicidal ideation, suicidal ideation Skin exam: PRESENT: dry, intact, warm. ABSENT: cyanosis, rash Results Laboratory Results: 05/14/19 04:55 05/14/19 04:55 05/14/19 05/14/19 04:55 04:55 WBC 0.8 L* D RBC 3.99 L Hgb 13.1 L Hct 38.0 MCV 95 MCH 32.8 MCHC 34.5 RDW 20.1 H Plt Count 53 L Seg Neutrophils % 25.9 L Sodium 136.7 L Potassium 4.4 Chloride 103 Carbon Dioxide 25 Anion Gap 9 BUN 23 H Creatinine 1.06 Est GFR ( Amer) > 60 Glucose 119 H Calcium 10.6 H 05/10/19 14:17 Sputum Gram Stain - Final 05/10/19 14:17 Sputum Sputum Culture - Final Pseudomonas Aeruginosa Klebsiella Pneumoniae Morax.(Branhamella)Catarrhalis Normal Vanessa Impressions: Chest X-Ray 05/10/19 11:56 IMPRESSION: Nodule versus infiltrate right upper lobe superimposed on the permanent central line Abdomen/Pelvis CT 05/11/19 00:00 IMPRESSION: 1. Lung findings as described above please refer to chest CT for further discussion. 2. Stable hemangioma in the right lobe of liver. 3. Small nonspecific periaortic lymph nodes stable in appearance. Chest CT 05/11/19 06:00 IMPRESSION: 1. The 2 right upper lobe pulmonary masses have decreased in size since prior study. There is a new 8.5 x 9.9 mm spiculated nodule in the right base with associated pleural thickening. 2. Stable bilateral emphysematous changes. 3. Stable pretracheal and right hilar adenopathy. Assessment & Plan - Diagnosis (1) Pneumonia involving right lung Qualifiers: Pneumonia type: due to Pseudomonas Lung location: middle lobe of lung Jeffry lified Code(s): J15.1 - Pneumonia due to Pseudomonas Is this a current diagnosis for this admission?: Yes Plan: Improving, continue with current therapy (2) Carcinoma metastatic to bone with unknown primary site Is this a current diagnosis for this admission?: Yes Plan: Holding on treatment for now until fully recovered from this episode (3) Pancytopenia Is this a current diagnosis for this admission?: Yes Plan: Neutropenia still present, continue with Neupogen. Patient will need to stay for a few more days with IV antibiotics until counts recover (4) Hypocalcemia Is this a current diagnosis for this admission?: Yes Plan: Resolved (5) Pain, neoplasm-related Is this a current diagnosis for this admission?: Yes Plan: Continue with current regimen - Time Time Spent with patient: 25-34 minutes
[2019-05-15] MEDS: IPRATROPIUM/ALBUTEROL 0.5-2.5 MG/3 ML AMPUL NEB SCH ×4 (01:52→19:30)
[2019-05-15 05:40] LABS: HEMATOCRIT 39.5 % (37.9-51.0); HEMOGLOBIN 13.9 g/dL (13.5-17.0); MEAN CORPUSCULAR HEMOGLOBIN 33.4 pg (27.0-33.4); MEAN CORPUSCULAR HGB CONC 35.2 g/dL (32.0-36.0); MEAN CORPUSCULAR VOLUME 95 fl (80-97); RED BLOOD COUNT 4.16 10^6/uL (4.35-5.55); RED CELL DISTRIBUTION WIDTH 20.2 % (11.5-14.0)
[2019-05-15] MEDS: BENZONATATE 100 MG CAPSULE PO SCH ×3 (05:43→21:52)
[2019-05-15 05:49] LABS: WHITE BLOOD COUNT 0.8 10^3/uL (4.0-10.5)
[2019-05-15 05:51] LABS: ANION GAP 8 (5-19); BLOOD UREA NITROGEN 25 mg/dL (7-20); CARBON DIOXIDE 25 mmol/L (22-30); CHLORIDE 103 mmol/L (98-107); GLUCOSE 121 mg/dL (75-110); POTASSIUM 4.3 mmol/L (3.6-5.0)
[2019-05-15 06:03] LABS: ABSOLUTE LYMPHOCYTES# (MANUAL) 0.7 10^3/uL (0.5-4.7); BASOPHILS % (MANUAL) 0 % (0-2); EOSINOPHILS % (MANUAL) 0 % (0-6); LYMPHOCYTES % (MANUAL) 90 % (13-45); MONOCYTES % (MANUAL) 6 % (3-13); SEGMENTED NEUTROPHILS % (MAN) 4 % (42-78); TOTAL CELLS COUNTED 50
[2019-05-15 06:04] LABS: ANISOCYTOSIS 2+; PLATELET COMMENT DECREASED
[2019-05-15 07:11] LABS: PLATELET COUNT 60 10^3/uL (150-450)
[2019-05-15] MEDS: FLUTICASONE/VILANTEROL 200-25 MCG/DOSE IH SCH (09:19)
[2019-05-15] MEDS: UMECLIDINIUM BROMIDE 62.5 MCG/DOSE IH SCH (09:20)
[2019-05-15] MEDS: FILGRASTIM INJ 480 MCG/1.6 ML VIAL SUBCUT SCH (09:21)
[2019-05-15] MEDS: CALCIUM CARBONATE 600 MG TABLET PO SCH ×2 (09:21→17:47)
[2019-05-15] MEDS: LEVOFLOXACIN 500 MG TABLET PO SCH (09:21)
[2019-05-15] MEDS: DOCUSATE SODIUM 100 MG CAPSULE PO SCH ×2 (09:21→17:47)
[2019-05-15] MEDS: GUAIFENESIN SYRP 200 MG/10 ML UDC PO PRN (09:21)
[2019-05-15] MEDS: PREDNISONE 20 MG TABLET PO SCH ×2 (09:21→17:47)
[2019-05-15] MEDS: MONTELUKAST SODIUM 10 MG TABLET PO SCH (09:21)
[2019-05-15] MEDS: CEFEPIME 1 GM/D5W RTU 1 GM/50 ML RTUPB IV SCH (09:22)
[2019-05-15] MEDS: FAMOTIDINE 20 MG TABLET PO SCH ×2 (09:24→21:52)
--- NOTE | 2019-05-15 09:59 | PDOC PROGRESS REPORT ---
Subjective Progress Note for:: 05/15/19 Subjective:: Patient is currently doing well Patient's white count is low No fever no chills Reason For Visit: DEHYDRATION, RENAL CALL CA, COUGH, FEVER Physical Exam Vital Signs: Temp Pulse Resp BP Pulse Ox 98.1 F 79 16 123/91 H 94 05/15/19 07:55 05/15/19 07:55 05/15/19 07:55 05/15/19 07:55 05/15/19 07:55 Intake & Output 05/14/19 05/15/19 05/16/19 06:59 06:59 06:59 Intake Total 3242 1956 Balance 3241956 Weight 55.5 kg 55.1 kg General appearance: PRESENT: no acute distress, well-developed, well-nourished Head exam: PRESENT: atraumatic, normocephalic Eye exam: PRESENT: conjunctiva pink, EOMI, PERRLA. ABSENT: scleral icterus Ear exam: PRESENT: normal external ear exam Mouth exam: PRESENT: moist, tongue midline Neck exam: PRESENT: full ROM. ABSENT: carotid bruit, JVD, lymphadenopathy, thyromegaly Respiratory exam: PRESENT: clear to auscultation elsa Cardiovascular exam: PRESENT: RRR. ABSENT: diastolic murmur, rubs, systolic murmur Pulses: PRESENT: normal dorsalis pedis pul, +2 pedal pulses bilateral Vascular exam: PRESENT: normal capillary refill GI/Abdominal exam: PRESENT: normal bowel sounds, soft. ABSENT: distended, guarding, mass, organolmegaly, rebound, tenderness Rectal exam: PRESENT: deferred Neurological exam: PRESENT: alert, awake, oriented to person, oriented to place, oriented to time, oriented to situation, CN II-XII grossly intact. ABSENT: motor sensory deficit Psychiatric exam: PRESENT: appropriate affect, normal mood. ABSENT: homicidal ideation, suicidal ideation Skin exam: PRESENT: dry, intact, warm. ABSENT: cyanosis, rash Results Laboratory Results: 05/15/19 04:21 05/15/19 04:21 05/15/19 05/15/19 04:21 04:21 WBC 0.8 L* RBC 4.16 L Hgb 13.9 Hct 39.5 MCV 95 MCH 33.4 MCHC 35.2 RDW 20.2 H Plt Count 60 L Seg Neutrophils % Not Reportable Sodium 136.1 L Potassium 4.3 Chloride 103 Carbon Dioxide 25 Anion Gap 8 BUN 25 H Creatinine 1.12 Est GFR ( Amer) > 60 Glucose 121 H Calcium 10.0 Impressions: Chest X-Ray 05/10/19 11:56 IMPRESSION: Nodule versus infiltrate right upper lobe superimposed on the permanent central line Abdomen/Pelvis CT 05/11/19 00:00 IMPRESSION: 1. Lung findings as described above please refer to chest CT for further discussion. 2. Stable hemangioma in the right lobe of liver. 3. Small nonspecific periaortic lymph nodes stable in appearance. Chest CT 05/11/19 06:00 IMPRESSION: 1. The 2 right upper lobe pulmonary masses have decreased in size since prior study. There is a new 8.5 x 9.9 mm spiculated nodule in the right base with associated pleural thickening. 2. Stable bilateral emphysematous changes. 3. Stable pretracheal and right hilar adenopathy. Assessment & Plan - Diagnosis (1) Pneumonia involving right lung Qualifiers: Pneumonia type: due to Pseudomonas Lung location: middle lobe of lung Qualified Code(s): J15.1 - Pneumonia due to Pseudomonas Is this a current diagnosis for this admission?: Yes (2) Chronic obstructive pulmonary disease Qualifiers: COPD type: unspecified COPD Qualified Code(s): J44.9 - Chronic obstructive pulmonary disease, unspecified Is this a current diagnosis for this admission?: Yes (3) History of renal cell carcinoma Is this a current diagnosis for this admission?: Yes (4) History of prostate cancer Is this a current diagnosis for this admission?: Yes (5) Acute dehydration Is this a current diagnosis for this admission?: Yes (6) Carcinoma metastatic to bone with unknown primary site Is this a current diagnosis for this admission?: Yes (7) Hypocalcemia Is this a current diagnosis for this admission?: Yes (8) Pain, neoplasm-related Is this a current diagnosis for this admission?: Yes (9) Pancytopenia Is this a current diagnosis for this admission?: Yes - Time Time Spent with patient: 15-24 minutes Level of Care: TELE Medications reviewed and adjusted accordingly: Yes Anticipated discharge: Home Within: Other - Plan Summary Plan Summary: Continues to current medications
--- NOTE | 2019-05-15 10:25 | PDOC PROGRESS REPORT ---
Subjective Progress Note for:: 05/15/19 Subjective:: No acute events overnight, white count is still low Reason For Visit: DEHYDRATION, RENAL CALL CA, COUGH, FEVER Physical Exam Vital Signs: Temp Pulse Resp BP Pulse Ox 98.1 F 79 16 123/91 H 94 05/15/19 07:55 05/15/19 07:55 05/15/19 07:55 05/15/19 07:55 05/15/19 07:55 Intake & Output 05/14/19 05/15/19 05/16/19 06:59 06:59 06:59 Intake Total 3241956 Balance 3241 1956 Weight 55.5 kg 55.1 kg General appearance: PRESENT: no acute distress, well-developed, well-nourished Head exam: PRESENT: atraumatic, normocephalic Eye exam: PRESENT: conjunctiva pink, EOMI, PERRLA. ABSENT: scleral icterus Ear exam: PRESENT: normal external ear exam Mouth exam: PRESENT: moist, tongue midline Neck exam: ABSENT: carotid bruit, JVD, lymphadenopathy, thyromegaly Respiratory exam: PRESENT: clear to auscultation elsa. ABSENT: rales, rhonchi, wheezes Cardiovascular exam: PRESENT: RRR. ABSENT: diastolic murmur, rubs, systolic murmur Pulses: PRESENT: normal dorsalis pedis pul Vascular exam: PRESENT: normal capillary refill GI/Abdominal exam: PRESENT: normal bowel sounds, soft. ABSENT: distended, guarding, mass, organolmegaly, rebound, tenderness Rectal exam: PRESENT: deferred Extremities exam: PRESENT: full ROM. ABSENT: calf tenderness, clubbing, pedal edema Neurological exam: PRESENT: alert, awake, oriented to person, oriented to place, oriented to time, oriented to situation, CN II-XII grossly intact. ABSENT: motor sensory deficit Psychiatric exam: PRESENT: appropriate affect, normal mood. ABSENT: homicidal ideation, suicidal ideation Skin exam: PRESENT: dry, intact, warm. ABSENT: cyanosis, rash Results Laboratory Results: 05/15/19 04:21 05/15/19 04:21 05/15/19 05/15/19 04:21 04:21 WBC 0.8 L* RBC 4.16 L Hgb 13.9 Hct 39.5 MCV 95 MCH 33.4 MCHC 35.2 RDW 20.2 H Plt Count 60 L Seg Neutrophils % Not Reportable Sodium 136.1 L Potassium 4.3 Chloride 103 Carbon Dioxide 25 Anion Gap 8 BUN 25 H Creatinine 1.12 Est GFR ( Amer) > 60 Glucose 121 H Calcium 10.0 Impressions: Chest X-Ray 05/10/19 11:56 IMPRESSION: Nodule versus infiltrate right upper lobe superimposed on the permanent central line Abdomen/Pelvis CT 05/11/19 00:00 IMPRESSION: 1. Lung findings as described above please refer to chest CT for further discussion. 2. Stable hemangioma in the right lobe of liver. 3. Small nonspecific periaortic lymph nodes stable in appearance. Chest CT 05/11/19 06:00 IMPRESSION: 1. The 2 right upper lobe pulmonary masses have decreased in size since prior study. There is a new 8.5 x 9.9 mm spiculated nodule in the right base with associated pleural thickening. 2. Stable bilateral emphysematous changes. 3. Stable pretracheal and right hilar adenopathy. Assessment & Plan - Diagnosis (1) Pneumonia involving right lung Qualifiers: Pneumonia type: due to Pseudomonas Lung location: middle lobe of lung Qualified Code(s): J15.1 - Pneumonia due to Pseudomonas Is this a current diagnosis for this admission?: Yes Plan: Continue with antibiotic but discussed with Dr. Greer, concerned that Levaquin may be causing some myelosuppression so planning on changing antibiotics, discon tinuing current antibiotic and starting meropenem which would cover both Klebsiella as well as Pseudomonas and not to cause myelosuppression. (2) Carcinoma metastatic to bone with unknown primary site Is this a current diagnosis for this admission?: Yes Plan: Further treatment as an outpatient (3) Pancytopenia Is this a current diagnosis for this admission?: Yes Plan: Continue with Neupogen, changes in antibiotics as above (4) Pain, neoplasm-related Is this a current diagnosis for this admission?: Yes Plan: Continue with current pain med - Time Time Spent with patient: 15-24 minutes
[2019-05-15] MEDS: MEROPENEM 500 MG in NORMAL SALINE 50 ML IV SCH ×2 (14:05→21:52)
[2019-05-16] MEDS: IPRATROPIUM/ALBUTEROL 0.5-2.5 MG/3 ML AMPUL NEB SCH ×2 (01:43→08:36)
[2019-05-16] MEDS: BENZONATATE 100 MG CAPSULE PO SCH (05:15)
[2019-05-16] MEDS: MEROPENEM 500 MG in NORMAL SALINE 50 ML IV SCH (05:17)
--- NOTE | 2019-05-16 08:05 | PDOC PROGRESS REPORT ---
Subjective Progress Note for:: 05/16/19 Subjective:: CBC pending this morning but patient is feeling good, still was neutropenic as of yesterday, medication changes made so we will see if there is a change in counts. was at bedside, discussed CT report at length and plans for next steps of care. Spent about 35 minutes in discussion. Reason For Visit: DEHYDRATION, RENAL CALL CA, COUGH, FEVER Physical Exam Vital Signs: Temp Pulse Resp BP Pulse Ox 98.4 F 98 16 136/90 H 98 05/15/19 23:13 05/16/19 01:44 05/16/19 01:44 05/15/19 23:13 05/16/19 01:44 Intake & Output 05/15/19 05/16/19 05/17/19 06:59 06:59 06:59 Intake Total 1956 920 Balance 1956 920 Weight 55.1 kg 54.6 kg General appearance: PRESENT: no acute distress, well-developed, well-nourished Head exam: PRESENT: atraumatic, normocephalic Eye exam: PRESENT: conjunctiva pink, EOMI, PERRLA. ABSENT: scleral icterus Ear exam: PRESENT: normal external ear exam Mouth exam: PRESENT: moist, tongue midline Neck exam: ABSENT: carotid bruit, JVD, lymphadenopathy, thyromegaly Respiratory exam: PRESENT: clear to auscultation elsa. ABSENT: rales, rhonchi, wheezes Cardiovascular exam: PRESENT: RRR. ABSENT: diastolic murmur, rubs, systolic murmur Pulses: PRESENT: normal dorsalis pedis pul Vascular exam: PRESENT: normal capillary refill GI/Abdominal exam: PRESENT: normal bowel sounds, soft. ABSENT: distended, guarding, mass, organolmegaly, rebound, tenderness Rectal exam: PRESENT: deferred Extremities exam: PRESENT: full ROM. ABSENT: calf tenderness, clubbing, pedal edema Neurological exam: PRESENT: alert, awake, oriented to person, oriented to place, oriented to time, oriented to situation, CN II-XII grossly intact. ABSENT: motor sensory deficit Psychiatric exam: PRESENT: appropriate affect, normal mood. ABSENT: homicidal ideation, suicidal ideation Skin exam: PRESENT: dry, intact, warm. ABSENT: cyanosis, rash Results Laboratory Results: 05/15/19 04:21 05/15/19 04:21 05/10/19 12:57 Blood Blood Culture - Final NO GROWTH IN 5 DAYS 05/10/19 13:06 Blood Blood Culture - Final NO GROWTH IN 5 DAYS Impressions: Chest X-Ray 05/10/19 11:56 IMPRESSION: Nodule versus infiltrate right upper lobe superimposed on the permanent central line Abdomen/Pelvis CT 05/11/19 00:00 IMPRESSION: 1. Lung findings as described above please refer to chest CT for erica pryor discussion. 2. Stable hemangioma in the right lobe of liver. 3. Small nonspecific periaortic lymph nodes stable in appearance. Chest CT 05/11/19 06:00 IMPRESSION: 1. The 2 right upper lobe pulmonary masses have decreased in size since prior study. There is a new 8.5 x 9.9 mm spiculated nodule in the right base with associated pleural thickening. 2. Stable bilateral emphysematous changes. 3. Stable pretracheal and right hilar adenopathy. 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 (3) Pancytopenia Is this a current diagnosis for this admission?: Yes Plan: Awaiting CBC from today (4) Pain, neoplasm-related Is this a current diagnosis for this admission?: Yes Plan: Stable - Time Time Spent with patient: 35 or more minutes
[2019-05-16] MEDS: PREDNISONE 20 MG TABLET PO SCH (09:11)
[2019-05-16] MEDS: CALCIUM CARBONATE 600 MG TABLET PO SCH (09:11)
[2019-05-16] MEDS: DOCUSATE SODIUM 100 MG CAPSULE PO SCH (09:11)
[2019-05-16] MEDS: FILGRASTIM INJ 480 MCG/1.6 ML VIAL SUBCUT SCH (09:11)
[2019-05-16] MEDS: MONTELUKAST SODIUM 10 MG TABLET PO SCH (09:11)
[2019-05-16] MEDS: FAMOTIDINE 20 MG TABLET PO SCH (09:11)
[2019-05-16] MEDS: FLUTICASONE/VILANTEROL 200-25 MCG/DOSE IH SCH (09:12)
[2019-05-16] MEDS: UMECLIDINIUM BROMIDE 62.5 MCG/DOSE IH SCH (09:12)
[2019-05-16 10:03] LABS: HEMATOCRIT 43.2 % (37.9-51.0); HEMOGLOBIN 15.2 g/dL (13.5-17.0); MEAN CORPUSCULAR HGB CONC 35.1 g/dL (32.0-36.0); MEAN CORPUSCULAR VOLUME 97 fl (80-97); RED BLOOD COUNT 4.47 10^6/uL (4.35-5.55); RED CELL DISTRIBUTION WIDTH 20.1 % (11.5-14.0)
[2019-05-16 10:38] LABS: WHITE BLOOD COUNT 2.9 10^3/uL (4.0-10.5)
[2019-05-16 10:41] LABS: PLATELET COUNT 75 10^3/uL (150-450)
[2019-05-16 10:45] LABS: ABSOLUTE LYMPHOCYTES# (MANUAL) 2.2 10^3/uL (0.5-4.7); ABSOLUTE MONOCYTES # (MANUAL) 0.6 10^3/uL (0.1-1.4); BAND NEUTROPHILS % (MANUAL) 1 % (3-5); BASOPHILS % (MANUAL) 0 % (0-2); EOSINOPHILS % (MANUAL) 0 % (0-6); LYMPHOCYTES % (MANUAL) 67 % (13-45); METAMYELOCYTES % (MANUAL) 1 % (0-1); MONOCYTES % (MANUAL) 19 % (3-13); SEGMENTED NEUTROPHILS % (MAN) 4 % (42-78); TOTAL CELLS COUNTED 100
[2019-05-16 10:47] LABS: ANISOCYTOSIS 2+; POIKILOCYTOSIS 1+; POLYCHROMASIA 2+
[2019-05-16 10:48] LABS: SCHISTOCYTES SLIGHT; TEAR DROP CELLS SLIGHT
[2019-05-16 10:49] LABS: NUCLEATED RED BLOOD CELLS 13 /100 WBC (0); PLATELET COMMENT DECREASED
--- NOTE | 2019-05-16 12:04 | PDOC DISCHARGE SUMMARY ---
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 Is this a current diagnosis for this admission?: Yes (7) Hypocalcemia Is this a current diagnosis for this admission?: Yes (8) Pain, neoplasm-related Is this a current diagnosis for this admission?: Yes (9) Pancytopenia Is this a current diagnosis for this admission?: Yes - Additional Information Resuscitation Status: Full Code Discharge Diet: Regular Discharge Activity: Activity As Tolerated Referrals: YANET MONREAL MD [ACTIVE STAFF] - 05/18/19 9:00 am Prescriptions: Cefdinir 300 mg PO BID #10 capsule Home Medications: Cetirizine HCl [Zyrtec 10 mg Chewable Tab] 1 tab PO DAILY 12/28/18 Esomeprazole Magnesium [Nexium] 20 mg PO DAILY 12/28/18 Montelukast Sodium [Singulair 10 mg Tablet] 10 mg PO DAILY 12/28/18 Tiotropium [place] [Spiriva Handihaler 5 Cap/Kit (18 Mcg/Cap)] 1 cap PO DAILY 12/28/18 Fluticasone/Salmeterol [Advair 250-50 Diskus 14 Dose/Diskus] 1 inh IH DAILY 01/04/19 Calcium Carbonate [Calcium] 1,200 mg PO BID 05/10/19 Cholecalciferol (Vitamin D3) [Vitamin D3] 25 mcg PO DAILY 05/10/19 Megestrol Acetate [Megace Valery 400 mg/10 ml Udcup] 400 mg PO DAILY 05/10/19 Oxycodone HCl [Oxycodone HCl ER] 20 mg PO Q12 05/10/19 Pantoprazole Sodium 20 mg PO DAILY 05/10/19 Potassium Chloride [Klor-Con] 20 meq PO DAILY 05/10/19 Cefdinir 300 mg PO BID #10 capsule 05/16/19 History of Present Illiness History of Present Illness: NUNU GONZALEZ SR is a 68 year old male his is a 68-year-old male with a history of the renal cell carcinoma status post right nephrectomy history of the prostate cancer status post prostatectomy and now 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 coming from the GI most likely pancreatobiliary currently getting the chemotherapy per oncology also have a metastasis in the bone and the lymphoma recently complaining some cough congestion for the last 1 week and a running a fever and not feeling well Today's went to the oncology office patient was very weak and dehydrated and oncology called and sent the patient here for hospital admissions When I saw the patient's patient have a 99 fever and patients are tachycardic weak but alert awake oriented x4 Patient's at this point decided to admit in the hospital Patient's denied any chest pain just the cough no short of breath no hypoxia No abdominal pain no nausea no vomiting Discussed with the oncology scheduled for the CT of the chest abdomen pelvis tomorrow with IV contrast and p.o. contrast We will hydrate the patient's very well first Patient is currently considers himself is a full code and his next to him to make a decisions Discussed with the and the patient in the office and admitted directly in the hospital Patient's blood work this morning and oncology office was all stable Hospital Course Hospital Course: Is a 68-year-old male admitting in the hospital for the pneumonia which grew up the Pseudomonas and KlebsiellaAnd patient was started IV antibiotic Patient also currently on chemotherapy for the unknown GI malignancy which also metastatic in the lung and the bone Patient responds very well with the antibiotics patient COPD also slightly exacerbations and admissions currently all resolved Patient is requiring Neupogen because of the neutrophils was low Patient is finished the 7-day course of IV antibiotic patient is to remain afebrile patient is discharged home with the stable conditions follow outpatient oncology Physical Exam Vital Signs: Temp Pulse Resp BP Pulse Ox 98.0 F 116 H 20 125/82 96 05/16/19 07:20 05/16/19 08:38 05/16/19 08:38 05/16/19 07:20 05/16/19 08:38 Intake & Output 05/15/19 05/16/19 05/17/19 06:59 06:59 06:59 Intake Total 1956 Balance 1956 Weight 55.1 kg 54.6 kg General appearance: PRESENT: no acute distress, well-developed, well-nourished Head exam: PRESENT: atraumatic, normocephalic Eye exam: PRESENT: conjunctiva pink, EOMI, PERRLA. ABSENT: scleral icterus Ear exam: PRESENT: normal external ear exam Mouth exam: PRESENT: moist, tongue midline Neck exam: ABSENT: carotid bruit, JVD, lymphadenopathy, thyromegaly Respiratory exam: PRESENT: clear to auscultation elsa. ABSENT: rales, rhonchi, wheezes Cardiovascular exam: PRESENT: RRR. ABSENT: diastolic murmur, rubs, systolic murmur Pulses: PRESENT: normal dorsalis pedis pul Vascular exam: PRESENT: normal capillary refill GI/Abdominal exam: PRESENT: normal bowel sounds, soft. ABSENT: distended, guarding, mass, organolmegaly, rebound, tenderness Rectal exam: PRESENT: deferred Extremities exam: PRESENT: full ROM. ABSENT: calf tenderness, clubbing, pedal edema Neurological exam: PRESENT: alert, awake, oriented to person, oriented to place, oriented to time, oriented to situation, CN II-XII grossly intact. ABSENT: motor sensory deficit Psychiatric exam: PRESENT: appropriate affect, normal mood. ABSENT: homicidal ideation, suicidal ideation Skin exam: PRESENT: dry, intact, warm. ABSENT: cyanosis, rash Results Laboratory Results: WBC 2.9 10^3/uL (4.0-10.5) L D 05/16/19 09:37 RBC 4.47 10^6/uL (4.35-5.55) 05/16/19 09:37 Hgb 15.2 g/dL (13.5-17.0) 05/16/19 09:37 Hct 43.2 % (37.9-51.0) 05/16/19 09:37 MCV 97 fl (80-97) 05/16/19 09:37 MCH 34.0 pg (27.0-33.4) H 05/16/19 09:37 MCHC 35.1 g/dL (32.0-36.0) 05/16/19 09:37 RDW 20.1 % (11.5-14.0) H 05/16/19 09:37 Plt Count 75 10^3/uL (150-450) L 05/16/19 09:37 Lymph % (Auto) Not Reportable 05/16/19 09:37 [place] % (Auto) Not Reportable 05/16/19 09:37 Eos % (Auto) Not Reportable 05/16/19 09:37 Baso % (Auto) Not Reportable 05/16/19 09:37 Absolute Neuts (auto) Not Reportable 05/16/19 09:37 Absolute Lymphs (auto) Not Reportable 05/16/19 09:37 Absolute Monos (auto) Not Reportable 05/16/19 09:37 Absolute Eos (auto) Not Reportable 05/16/19 09:37 Absolute Basos (auto) Not Reportable 05/16/19 09:37 Total Counted 100 05/16/19 09:37 Seg Neutrophils % Not Reportable 05/16/19 09:37 Seg Neuts % (Manual) 4 % (42-78) L 05/16/19 09:37 Band Neutrophils % 1 % (3-5) L 05/16/19 09:37 Lymphocytes % (Manual) 67 % (13-45) H 05/16/19 09:37 Atypical Lymphs % 8 % (0) 05/16/19 09:37 Monocytes % (Manual) 19 % (3-13) H 05/16/19 09:37 Eosinophils % (Manual) 0 % (0-6) 05/16/19 09:37 Basophils % (Manual) 0 % (0-2) 05/16/19 09:37 Metamyelocytes % 1 % (0-1) 05/16/19 09:37 Abs Neuts (Manual) 0.2 10^3/uL (1.7-8.2) L 05/16/19 09:37 Abs Lymphs (Manual) 2.2 10^3/uL (0.5-4.7) 05/16/19 09:37 Abs Monocytes (Manual) 0.6 10^3/uL (0.1-1.4) 05/16/19 09:37 Absolute Eos (Manual) 0.0 10^3/uL (0.0-0.6) 05/16/19 09:37 Abs Basophils (Manual) 0.0 10^3/uL (0.0-0.2) 05/16/19 09:37 Nucleated RBCs 13 /100 WBC (0) 05/16/19 09:37 Toxic Granulation 1+ 05/13/19 05:27 Large Platelets PRESENT 05/13/19 05:27 Platelet Comment DECREASED 05/16/19 09:37 Polychromasia 2+ 05/16/19 09:37 Poikilocytosis 1+ 05/16/19 09:37 Anisocytosis 2+ 05/16/19 09:37 Tear Drop Cells SLIGHT 05/16/19 09:37 Ovalocytes 1+ 05/14/19 04:55 [place] Cells SLIGHT 05/13/19 05:27 Acanthocytes (Spur) SLIGHT 05/16/19 09:37 Schistocytes SLIGHT 05/16/19 09:37 Sodium 136.1 mmol/L (137-145) L 05/15/19 04:21 Potassium 4.3 mmol/L (3.6-5.0) 05/15/19 04:21 Chloride 103 mmol/L (98-107) 05/15/19 04:21 Carbon Dioxide 25 mmol/L (22-30) 05/15/19 04:21 Anion Gap 8 (5-19) 05/15/19 04:21 BUN 25 mg/dL (7-20) H 05/15/19 04:21 Creatinine 1.12 mg/dL (0.52-1.25) 05/15/19 04:21 Est GFR ( Amer) > 60 (>60) 05/15/19 04:21 Est GFR (MDRD) Non-Af > 60 (>60) 05/15/19 04:21 Glucose 121 mg/dL (75-110) H 05/15/19 04:21 Calcium 10.0 mg/dL (8.4-10.2) 05/15/19 04:21 Magnesium 1.9 mg/dL (1.6-2.3) 05/13/19 05:27 Total Bilirubin 0.6 mg/dL (0.2-1.3) 05/11/19 04:56 Direct Bilirubin 0.0 mg/dL (0.0-0.4) 05/11/19 04:56 Neonat Total Bilirubin Not Reportable 05/11/19 04:56 Neonat Direct Bilirubin Not Reportable 05/11/19 04:56 Neonat Indirect Bili Not Reportable 05/11/19 04:56 AST 57 U/L (17-59) 05/11/19 04:56 ALT 27 U/L (<50) 05/11/19 04:56 Alkaline Phosphatase 58 U/L (38-126) 05/11/19 04:56 Total Protein 4.9 g/dL (6.3-8.2) L 05/11/19 04:56 Albumin 2.3 g/dL (3.5-5.0) L 05/11/19 04:56 Slides for Path Review PATHOLOGIST REVIEWED 05/12/19 05:43 Impressions: Chest X-Ray 05/10/19 11:56 IMPRESSION: Nodule versus infiltrate right upper lobe superimposed on the permanent central line Abdomen/Pelvis CT 05/11/19 00:00 IMPRESSION: 1. Lung findings as described above please refer to chest CT for further discussion. 2. Stable hemangioma in the right lobe of liver. 3. Small nonspecific periaortic lymph nodes stable in appearance. Chest CT 05/11/19 06:00 IMPRESSION: 1. The 2 right upper lobe pulmonary masses have decreased in size since prior study. There is a new 8.5 x 9.9 mm spiculated nodule in the right base with associated pleural thickening. 2. Stable bilateral emphysematous changes. 3. Stable pretracheal and right hilar adenopathy. Plan Time Spent: Greater than 30 Minutes - Patient's continues to p.o. antibiotics for 5 more days follow in office 1 week follow with oncology Stroke Is this a Stroke Patient?: No Acute Heart Failure - Is this a Heart Failure Patient?: No
[2019-05-16 12:37] VITALS: BP 140/90
[2019-05-17 11:01] LABS: PATH REVIEW PATHOLOGIST REVIEWED
== END 2019-05-16 13:27 | disposition home or self-care (01) | DRG 689 ==
LOC: 4W 11:36 → OBSVTOIN 11:53 → 4W 12:53 → 4N 05-12 18:13
PROVIDERS: ADMIT Family Medicine; ATTEND Family Medicine
DX: N39.0 Urinary tract infection, site not specified (principal); J15.1 Pneumonia due to Pseudomonas; J15.0 Pneumonia due to Klebsiella pneumoniae; C79.51 Secondary malignant neoplasm of bone; C78.00 Secondary malignant neoplasm of unspecified lung; C77.9 Secondary and unspecified malignant neoplasm of lymph node, unspecified; D61.818 Other pancytopenia; J44.0 Chronic obstructive pulmonary disease with (acute) lower respiratory infection; C80.1 Malignant (primary) neoplasm, unspecified; D50.8 Other iron deficiency anemias; E86.0 Dehydration; K21.9 Gastro-esophageal reflux disease without esophagitis; E83.51 Hypocalcemia; G89.3 Neoplasm related pain (acute) (chronic); E78.5 Hyperlipidemia, unspecified; I10 Essential (primary) hypertension; Z90.5 Acquired absence of kidney; Z85.46 Personal history of malignant neoplasm of prostate; Z85.528 Personal history of other malignant neoplasm of kidney; Z79.899 Other long term (current) drug therapy; Z87.891 Personal history of nicotine dependence; Z90.79 Acquired absence of other genital organ(s)
CPT/HCPCS: 36415; 71046; 71260; 74177; 80048; 80053; 83735; 85025; 87040; 87070; 87077; 87086; 87186; 87205; 93005; 93010; 94640; J0692; J1442; J2185; J2920; J3490; J7030; J7060; J7512; J7620

== ENCOUNTER → 2019-08-23 | Outpatient (CLI) | payer MEDICARE, OTHER ==
--- NOTE | 2019-08-23 12:58 | RADIOLOGY REPORT (SQ) ---
EXAM DESCRIPTION: MRI HEAD COMBO IMAGES COMPLETED DATE/TIME: 08/23/2019 12:09 pm REASON FOR STUDY: MALIGNANT NEOPLASM OF PANCREAS, UNSPECIFIED C25.9 MALIGNANT NEOPLASM OF PANCREAS, UNSPECIFIED COMPARISON: None. TECHNIQUE: Multiplanar imaging includes noncontrasted T1, T2, FLAIR, diffusion with ADC map and post gadolinium contrast T1 sequences. Images stored on PACS. CONTRAST TYPE AND DOSE: 10 mL Dotarem. RENAL FUNCTION: Not indicated. ACR Type II contrast agent associated with few, if any, unconfounded cases of NSF LIMITATIONS: None. FINDINGS: ANATOMY: No anomalies. Normal vascular flow voids. Pituitary fossa normal. CSF SPACES: Normal in size and contour. No hemorrhage. CEREBRUM: Sulci and gyri normal in size and contour. Normal white matter signal on FLAIR imaging. No evidence of hemorrhage, mass, or extraaxial fluid collection. No abnormal enhancement post contrast. POSTERIOR FOSSA: No signal alteration. No hemorrhage. No edema, masses, or mass effect. Internal fabiana tory canals, cerebellopontine angles, mastoids normal. No enhancing lesions. No abnormal enhancement post contrast. DIFFUSION IMAGING: Negative for acute or subacute infarction. ORBITS: No masses. Globes normal. PARANASAL SINUSES: No fluid levels. Mucosa normal. OTHER: No other significant finding. IMPRESSION: NORMAL MRI OF THE BRAIN WITHOUT AND WITH INTRAVENOUS GADOLINIUM CONTRAST. EVIDENCE OF ACUTE STROKE: NO. TECHNICAL DOCUMENTATION: JOB ID: [id number] 2010 [employer]- All Rights Reserved Reading location - IP/workstation name: [email or web address]
--- NOTE | 2019-08-24 10:13 | RADIOLOGY REPORT (SQ) ---
EXAM DESCRIPTION: PET CT SKULL/THIGH IMAGES COMPLETED DATE/TIME: 08/23/2019 3:28 pm REASON FOR STUDY: MALIGNANT NEOPLASM OF PANCREAS, UNSPECIFIED C25.9 MALIGNANT NEOPLASM OF PANCREAS, UNSPECIFIED COMPARISON: 05/11/2019 CT, 08/23/2019 MRI, PET report 10/28/2018 RADIONUCLIDE AND DOSE: 11.31 mCi F18 FDG The route of agent administration: Intravenous FASTING BLOOD SUGAR: 97 mg/dl CONTRAST TYPE AND DOSE: No CT contrast given. TECHNIQUE: Blood glucose level was verified. Above dose of FDG was injected intravenously. 2-D seg mented attenuation correction images were obtained from the base of the skull to the midthighs. Nonc ontrast CT images were obtained for attenuation correction and fusion with emission images. CT image s were performed without oral or intravenous contrast and are not sensitive for parenchymal lesions. A series of overlapping emission PET images were obtained. Images reviewed and manipulated at [facility] work station by the radiologist. Images stored on PACS. LIMITATIONS: None. FINDINGS: HEAD AND NECK: Mild increased uptake along the soft palate without CT correlate (max SUV 4 .3), likely physiologic. No other areas of abnormal metabolic activity in the soft tissues of the he ad and neck. CHEST: Right upper lobe pulmonary nodule demonstrates interval decrease in size measuring 15 x 11 mm, previously 16 x 14 mm (series 3, image 63). There is residual increased uptake within this nodule ( max SUV 2.3). There is a new adjacent nodule more anteriorly area measuring 6 mm (series 3, image 63 ) with no significant uptake (max SUV 0.7). Irregular masslike consolidation within the medial right upper lobe demonstrates decreased size measuring approximately 14 x 13 mm (series 3, image 72), prev iously 22 x 21 mm. There is mild diffuse activity (max SUV 1.6). Previously seen pleural thickening along the right base has largely resolved with minimal linear opacities (series 3, image 97) without significant focal uptake. Decreased size of the pretracheal and precarinal nodes. For reference pr ecarinal node measures 7 x 17 mm, previously 7 x 23 mm and demonstrates mild uptake (max SUV 1.6), be low baseline. No new areas of uptake within the thorax. ABDOMEN AND PELVIS: No areas of abnormal metabolic activity in the abdomen or pelvis. Expected physi ologic activity is present in the genitourinary system and bowel. No acute findings. Absent right k [place]. PROXIMAL LOWER EXTREMITIES: No areas of abnormal metabolic activity in the soft tissues of the lower extremities. BONES: Again seen is the mixed lytic and sclerotic appearance of the right posterior 9th rib with mil d residual activity (max SUV 1.6). Unchanged multiple additional osseous lesions including T7, T11, L3 and the left sacrum. Unchanged additional sclerotic foci within the pelvis. No new definitive ly tic or osseous lesions. Without significant increased uptake. T11 lytic sclerotic lesion without si gnificant uptake. ADDITIONAL CT FINDINGS: As above. OTHER: Background hepatic activity max SUV 3.0. IMPRESSION: 1. Decreased size of previously seen right upper lobe pulmonary nodule measuring 15 x 1 1 mm, previously 16 x 14 mm. Residual mild uptake within this nodule (max SUV 2.3) may represent res idual disease. 2. New adjacent pulmonary nodule measuring 6 mm without significant increased uptake (max SUV 0.7). Findings moderately suspicious for new disease secondary to interval development. FDG sensitivity l imited for subcentimeter pulmonary nodules. Recommend attention on follow-up. 3. Additional decreased size of the more inferior right upper lobe masslike consolidation without si gnificant uptake (max SUV 1.6). Stable to decreased size of previously disc mediastinal nodes withou t abnormal uptake. 4. Stable osseous metastatic lesions without pathologic FDG uptake. 5. Mild uptake along the soft palate without CT correlate (max SUV 4.3), findings likely physiologic although direct visualization could be considered for evaluation for mucosal lesion. TECHNICAL DOCUMENTATION: JOB ID: [id number] 2010 [employer]- All Rights Reserved Reading location - IP/workstation name: [email or web address]
== END ==
LOC: RAD 10:59
PROVIDERS: ATTEND Internal Medicine
DX: C25.8 Malignant neoplasm of overlapping sites of pancreas (principal); R91.8 Other nonspecific abnormal finding of lung field
CPT/HCPCS: 82565; 70553; 78815; A9576; A9552

== ENCOUNTER → 2019-12-29 | Outpatient (CLI) | payer MEDICARE, OTHER ==
--- NOTE | 2019-12-29 14:27 | RADIOLOGY REPORT (SQ) ---
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 0 ml; Total Saline Delivered: 45.0 ml RENAL FUNCTION: Creatinine 1.3 COMPARISON: 10/26/2019 TECHNIQUE: CT scan of the chest performed using helical scanning technique with dynamic intravenous contrast injection. Images reviewed with lung, soft tissue and bone windows. Reconstructed coronal a nd sagittal MPR images reviewed. All images stored on PACS. All CT scanners at this facility use dose modulation, iterative reconstruction, and/or weight based d osing when appropriate to reduce radiation dose to as low as reasonably achievable (ALARA). [facility]: Dose Right [facility]: CareDose [facility]: Dose Right [facility]: Teradose 4D [facility]: [employer] RADIATION DOSE: CT Rad equipment meets quality standard of care and radiation dose reduction techniq ues were employed. CTDIvol: 4.5 - 4.7 mGy. DLP: 620 mGy-cm. . LIMITATIONS: None. FINDINGS: AXILLAE: No adenopathy. CHEST WALL: No masses. No subcutaneous air. LUNGS: Mild centrilobular emphysema is present in the upper lobes. Spiculated right upper lobe lung mass measures 11 x 11.4 x 15.4 mm. This represents little change since the earlier study, taking int o account the weighted measurements were obtained. A small nodule anterior to this is smaller than o n the prior study. An irregular mass in the anteromedial aspect of the inferior aspect of the right upper lobe measures 14 x 13.7 x 22 mm. This is more prominent. There is stranding from this to the upper right hilum that is likewise seen on the prior study. A 3 mm subpleural nodule on the right on image 73 is stable. No other or new pulmonary nodules are appreciated. PLEURA: No effusions. No calcifications. THYROID: No masses or significant asymmetry. HILAR AND MEDIASTINAL STRUCTURES: There is no hilar or mediastinal adenopathy or mass. PULMONARY ARTERIES: There are no obvious pulmonary emboli. Study not optimized for the pulmonary ar teries. HEART: No pericardial effusion. No aneurysm. HARDWARE AND LIFELINES: Injection port on the right. BONES: Mixed lytic and sclerotic metastatic lesions are once again seen. OTHER: No other significant finding. IMPRESSION: Pulmonary masses or described. The disease in the medial aspect of the right upper lobe appears more prominent. There is metastatic disease to bone. COMPARISON: 05/11/2019 RADIATION DOSE: CT Rad equipment meets quality standard of care and radiation dose reduction technLoopt ues were employed. CTDIvol: 4.5 - 4.7 mGy. DLP: 620 mGy-cm. mGy. TECHNIQUE: CT scan of the abdomen and pelvis performed with intravenous and oral contrast using cate bebo scanning technique with dynamic intravenous contrast injection. Images reviewed with lung, soft tissue and bone windows. Reconstructed coronal and sagittal MPR images reviewed. Delayed images for evaluation of the urinary system also acquired and evaluated. All images stored on PACS. All CT scanners at this facility use dose modulation, iterative reconstruction, and/or weight based d osing when appropriate to reduce radiation dose to as low as reasonably achievable (ALARA). [facility]: Dose Right [facility]: SureCare [facility]: Dose Right [facility]: Teradose 4D [facility]: Keraderm FINDINGS: LIVER: Stable hemangioma in the right lobe. No hepatic metastatic disease. SPLEEN: Normal size. No focal lesions. PANCREAS: No masses. No significant calcifications. No adjacent inflammation or peripancreatic flui d collections. Pancreatic duct not dilated. GALLBLADDER: No identified stones by CT criteria. No inflammatory changes to suggest cholecystitis. ADRENAL GLANDS: No significant masses or asymmetry. RIGHT KIDNEY AND URETER: Surgically absent. LEFT KIDNEY AND URETER: No solid masses. No significant calcifications. No hydronephrosis or hydr oureter. AORTA AND VESSELS: No aneurysm. No dissection. Renal arteries, SMA, celiac without stenosis. RETROPERITONEUM: No retroperitoneal adenopathy, hemorrhage or masses. LARGE AND SMALL BOWEL: No dilatation. No masses. No wall thickening. APPENDIX: Normal. ABDOMINAL WALL: No hernia or masses. PERITONEAL CAVITY: No free air. No free fluid. No peritoneal implants or masses. PELVIS: No mass or free fluid. Normal bladder. BONES: Metastatic lesion is once again seen at T11. There is a metastatic lesion in the left side of the sacrum that is once again noted. OTHER: No other significant finding. IMPRESSION: 1. Stable hemangioma in the right lobe of the liver. No hepatic metastases. 2. Stable osseous metastases. TECHNICAL DOCUMENTATION: JOB ID: [id number] Quality ID # [id number]: Final reports with documentation of one or more dose reduction techniques (e.g., Au tomated exposure control, adjustment of the mA and/or kV according to patient size, use of iterative reconstruction technique) 2010 [employer]- All Rights Reserved Reading location - IP/workstation name: [email or web address]
== END ==
LOC: RAD 08:48
PROVIDERS: ATTEND Internal Medicine
DX: C34.2 Malignant neoplasm of middle lobe, bronchus or lung (principal); C25.9 Malignant neoplasm of pancreas, unspecified; C79.51 Secondary malignant neoplasm of bone; C83.18 Mantle cell lymphoma, lymph nodes of multiple sites
CPT/HCPCS: 71260; 74177; 82565

== ENCOUNTER → 2020-02-03 | Outpatient (CLI) | payer MEDICARE, OTHER ==
[2020-02-03 14:38] LABS: ABSOLUTE EOSINOPHILS # (AUTO) 0.1 10^3/uL (0.0-0.6); ABSOLUTE LYMPHOCYTES (AUTO) 1.4 10^3/uL (0.5-4.7); ABSOLUTE MONOCYTES (AUTO) 0.4 10^3/uL (0.1-1.4); ABSOLUTE NEUT (AUTO) 4.3 10^3/uL (1.7-8.2); BASOPHILS % (AUTO) 0.4 % (0-2); EOSINOPHILS % (AUTO) 1.1 % (0-6); HEMATOCRIT 43.9 % (37.9-51.0); HEMOGLOBIN 15.2 g/dL (13.5-17.0); LYMPHOCYTES % (AUTO) 22.3 % (13-45); MEAN CORPUSCULAR HEMOGLOBIN 31.3 pg (27.0-33.4); MEAN CORPUSCULAR HGB CONC 34.6 g/dL (32.0-36.0); MEAN CORPUSCULAR VOLUME 91 fl (80-97); MONOCYTES % (AUTO) 6.4 % (3-13); PLATELET COUNT 171 10^3/uL (150-450); RED BLOOD COUNT 4.84 10^6/uL (4.35-5.55); RED CELL DISTRIBUTION WIDTH 14.5 % (11.5-14.0); SEGMENTED NEUTROPHILS % (AUTO) 69.8 % (42-78); TOTAL CELLS COUNTED % (AUTO) 100 %; WHITE BLOOD COUNT 6.2 10^3/uL (4.0-10.5)
--- NOTE | 2020-02-03 14:43 | RADIOLOGY REPORT (SQ) ---
EXAM DESCRIPTION: CHEST PA/LATERAL IMAGES COMPLETED DATE/TIME: 02/03/2020 2:32 pm REASON FOR STUDY: COUGH COMPARISON: 05/10/2019 EXAM PARAMETERS: NUMBER OF VIEWS: two views TECHNIQUE: Digital Frontal and Lateral radiographic views of the chest acquired. RADIATION DOSE: NA LIMITATIONS: none FINDINGS: LUNGS AND PLEURA: Persistent nodular opacity in the right upper lobe consistent with known pulmonary nodule. MEDIASTINUM AND HILAR STRUCTURES: Persistent right hilar fullness consistent with known pulmonary nod ule. HEART AND VASCULAR STRUCTURES: Heart normal size. No evidence for failure. BONES: Stable in appearance with sclerotic areas consistent with known bony metastasis. HARDWARE: Fcnseb-G-Crod is in place. OTHER: No other significant finding. IMPRESSION: Right hilar mass and right upper lobe pulmonary nodule stable from prior chest CT. Bon y metastasis are again noted. No significant change from prior CT. TECHNICAL DOCUMENTATION: JOB ID: [id number] 2010 [email or web address]- All Rights Reserved Reading location - IP/workstation name: [email or web address]
[2020-02-03 15:02] LABS: ALBUMIN 4.2 g/dL (3.5-5.0); ALKALINE PHOSPHATASE 112 U/L (38-126); ANION GAP 9 (5-19); ASPARTATE AMINO TRANSFERASE 72 U/L (17-59); BILIRUBIN,DIRECT 0.2 mg/dL (0.0-0.4); BILIRUBIN,TOTAL 0.8 mg/dL (0.2-1.3); BLOOD UREA NITROGEN 13 mg/dL (7-20); CALCIUM 9.6 mg/dL (8.4-10.2); CARBON DIOXIDE 28 mmol/L (22-30); CHLORIDE 102 mmol/L (98-107); GLUCOSE 96 mg/dL (75-110); POTASSIUM 4.2 mmol/L (3.6-5.0)
== END ==
LOC: OD 13:54
PROVIDERS: ATTEND Physician Assistant
DX: R91.8 Other nonspecific abnormal finding of lung field (principal); R91.1 Solitary pulmonary nodule; R05 Cough
CPT/HCPCS: 36415; 71046; 80053; 85025

== ENCOUNTER 2020-03-12 23:09 | Emergency (ER) | payer MEDICARE, OTHER ==
[2020-03-12 23:16] VITALS: BP 144/84
[2020-03-12] MEDS ORDERED: KETOROLAC TROMETHAMINE 60 MG/2 ML SDV IM ONE (23:47)
[2020-03-12] MEDS ORDERED: DEXAMETHASONE SOD PHOS INJ 10 MG/1 ML VIAL IM ONE (23:48)
[2020-03-12] MEDS ORDERED: DEXAMETHASONE SOD PHOSPHATE INJ 4 MG/1 ML VIAL IM STA (23:50)
--- NOTE | 2020-03-12 23:51 | ER Document Report ---
ED Extremity Problem, Lower - General Chief Complaint: Leg Pain Stated Complaint: LEG PAIN Time Seen by Provider: 03/12/20 23:47 Primary Care Provider: PAXTON SEAY PA-C [Primary Care Provider] - Follow up as needed Mode of Arrival: Ambulatory Information source: Patient Notes: Patient is a 69-year-old male comes emergency room complaining of low back pain with radiation to the buttocks. Patient states he has a history of sciatica and occasionally he gets an acute flareup. Patient states that he has been taking ibuprofen and that usually works but for the last 2 days has not been helping him at all. Patient states he knows why he is having a problems because he does not get move around much. He denies any known recent traumatic events. This is happened to him in the past and usually gets an anti-inflammatory shot usually helps him. Patient denies any loss of urine or stool and no tingling or numbness going down the legs. TRAVEL OUTSIDE OF THE [place] IN LAST 30 DAYS: No - HPI Patient complains to provider of: Pain Location: Back, Buttock Occurred: Other - Worse past 2 days Where: Home Onset/Duration: Gradual Quality of pain: Achy, Sharp Severity: Moderate Pain Level: 3 Recent injury: No Exacerbated by: Movement, Walking, Other - Bending Relieved by: Nothing - Related Data Allergies/Adverse Reactions: No Known Allergies Allergy (Verified 01/19/19 05:57) Past Medical History - General Information source: Patient - Social History Smoking Status: Never Smoker Cigarette use (# per day): No Chew tobacco use (# tins/day): No Smoking Education Provided: No Frequency of alcohol use: None Drug Abuse: None Lives with: Family Family History: Reviewed & Not Pertinent - Past Medical History Cardiac Medical History: Reports: Hx Hypercholesterolemia, Hx Hypertension Denies: Hx Coronary Artery Disease, Hx Heart Attack Pulmonary Medical History: Reports: Hx COPD Denies: Hx Asthma, Hx Bronchitis, Hx Pneumonia Neurological Medical History: Denies: Hx Cerebrovascular Accident, Hx Seizures Renal/ Medical History: Denies: Hx Peritoneal Dialysis GI Medical History: Reports: Hx Gastroesophageal Reflux Disease, Hx Ulcer. Denies: Hx Hepatitis, Hx Hiatal Hernia Musculoskeletal Medical History: Denies Hx Arthritis Infectious Medical History: Denies: Hx Hepatitis Past Surgical History: Reports: Hx Urinary Tract Surgery - Right nephrectomy, prostatectomy, Other - Nephrectomy, adrenalectomy. Denies: Hx Open Heart Surgery, Hx Pacemaker - Immunizations Immunizations up to date: Yes Hx Diphtheria, Pertussis, Tetanus Vaccination: Yes Review of Systems - Review of Systems Constitutional: No symptoms reported EENT: No symptoms reported Cardiovascular: No symptoms reported Respiratory: No symptoms reported Gastrointestinal: No symptoms reported Genitourinary: No symptoms reported Male Genitourinary: No symptoms reported Musculoskeletal: Back pain, Muscle pain Skin: No symptoms reported Hematologic/Lymphatic: No symptoms reported Neurological/Psychological: No symptoms reported -: Yes All other systems reviewed and negative Physical Exam - Vital signs Vitals: Temp Pulse Resp BP Pulse Ox 98 F 81 20 144/84 H 95 03/12/20 23:14 03/12/20 23:14 03/12/20 23:14 03/12/20 23:14 03/12/20 23:14 Interpretation: Hypertensive - Notes Notes: PHYSICAL EXAMINATION: GENERAL: Well-appearing, well-nourished and in no acute distress. But uncomfortable appearing. NECK: Normal range of motion, supple without lymphadenopathy LUNGS: Breath sounds clear to auscultation bilaterally and equal. No wheezes rales or rhonchi. HEART: Regular rate and rhythm without murmurs ABDOMEN: Soft, nontender, nondistended abdomen. No guarding, no rebound. No masses appreciated. Musculoskeletal: Examination patient's area concern is his lower lumbar spine area. Palpation the area shows some mild tenderness around L4-L5. He also has some bilateral tenderness in the upper sciatic notch regions of the buttocks bilaterally. Straight leg raises are negative for any acute findings. Patient displays good DTRs in bilateral lower extremities. He also displays good sensation from the inner ankles to the groin as he does from the outer ankles to the hips. No sign of saddle paresthesia. When patient ambulates there is no sign of foot drop. NEUROLOGICAL: Cranial nerves grossly intact. Normal speech, normal gait. Normal sensory, motor exams PSYCH: Normal mood, normal affect. SKIN: Warm, Dry, normal turgor, no rashes or lesions noted. Course - Re-evaluation Re-evalutation: 03/12/20 23:57 Given that this is an acute exacerbation of a chronic problem and patient has had no injuries no falls has not lost no urine or stool and has no tingling or numbness sensation going down the legs I feel it is appropriate at this time to go ahead and give him the 2 shots of Decadron and Toradol and put him on a little muscle relaxer. Patient is in agreement with this he will also ice down the area and he will follow-up with his primary care for further intervention if needed. - Vital Signs Vital signs: Temp Pulse Resp BP Pulse Ox 98 F 81 20 144/84 H 95 03/12/20 23:14 03/12/20 23:14 03/12/20 23:14 03/12/20 23:14 03/12/20 23:14 - Laboratory Results Critical Laboratory Results Reviewed: No Critical Results - Radiology Results Critical Radiology Results Reviewed: No Critical Results Discharge - Discharge Clinical Impression: Sciatica Qualifiers: Laterality: bilateral Qualified Code(s): M54.31 - Sciatica, right side; M54.32 - Sciatica, left side Condition: Stable Disposition: HOME, SELF-CARE Instructions: Ice Packs ([facility]), Low Back Pain ([facility]), Pain Medication Injection ([facility]), Warm Packs ([facility]), Sciatica ([facility]) Additional Instructions: Home and rest. As we discussed ice is your best friend for couple of days to put an ice pack on the lower back prior to bed and then you can use moist heat in the morning. Light stretching as we also discussed but do not overdo it. If the pain continues on or if you have a sudden loss of urine or stool or difficulty walking return to ER for reevaluation. Prescriptions: Methocarbamol [Robaxin 500 mg Tablet] 500 mg PO TID PRN #21 tablet PRN Reason: Forms: Elevated Blood Pressure Referrals: PAXTON SEAY PA-C [Primary Care Provider] - Follow up as needed
== END 2020-03-13 00:40 | disposition home or self-care (01) ==
LOC: ER 23:09
DX: M54.42 Lumbago with sciatica, left side (principal); I10 Essential (primary) hypertension; J44.9 Chronic obstructive pulmonary disease, unspecified
CPT/HCPCS: 99284; 96372; J1100; J1885

== ENCOUNTER → 2020-03-27 | Outpatient (CLI) | payer MEDICARE, OTHER ==
--- NOTE | 2020-03-27 10:31 | RADIOLOGY REPORT (SQ) ---
EXAM DESCRIPTION: CT CHEST WITH; CT ABD/PELVIS WITH IV ONLY IMAGES COMPLETED DATE/TIME: 03/27/2020 9:29 am REASON FOR STUDY: (C25.9)MALIGNANT NEOPLASM OF PANCREAS, UNSPECIFIED C25.9 MALIGNANT NEOPLASM OF PA NCREAS, UNSPECIFIED CONTRAST TYPE AND DOSE: contrast/concentration: Isovue 300.00 mmol/ml; Total Contrast Delivered: 78. 0 ml; Total Saline Delivered: 40.0 ml RENAL FUNCTION: BUN 12, creatinine 1.1 COMPARISON: None. TECHNIQUE: CT scan of the chest performed using helical scanning technique with dynamic intravenous contrast injection. Images reviewed with lung, soft tissue and bone windows. Reconstructed coronal a nd sagittal MPR images reviewed. All images stored on PACS. All CT scanners at this facility use dose modulation, iterative reconstruction, and/or weight based d osing when appropriate to reduce radiation dose to as low as reasonably achievable (ALARA). [facility]: Dose Right [facility]: CareDose [facility]: Dose Right [facility]: Teradose 4D [facility]: Smart [employer] [facility] [employer] RADIATION DOSE: CT Rad equipment meets quality standard of care and radiation dose reduction techniq ues were employed. CTDIvol: 4.5 - 4.6 mGy. DLP: 609 mGy-cm.. LIMITATIONS: None. FINDINGS: AXILLAE: No adenopathy. CHEST WALL: No masses. No subcutaneous air. LUNGS: The pulmonary nodules have slightly increased in size. The right upper lobe nodule measures 1 6.5 mm in diameter compared to 14.5 mm on prior exam. The right upper lobe nodule adjacent to the me diastinum measures 2.9 cm in greatest diameter. At the same level there is a 10.1 mm nodule which pr eviously measured approximately 7 mm. There is a 3.1 mm nodule on series 6 image 69 which is grossly stable. There is scarring in the right base which is unchanged. Focal opacity on series 6, image 5 7 is stable and probably represents focal scar. PLEURA: No effusions. No calcifications. THYROID: Stable in appearance. Small hypoattenuating nodule on the right. HILAR AND MEDIASTINAL STRUCTURES: No identified masses or abnormal nodes. AORTA AND GREAT VESSELS: No aneurysm. No dissection. PULMONARY ARTERIES: No identified pulmonary emboli. Study not optimized for the pulmonary arteries. HEART: No pericardial effusion. HARDWARE AND LIFELINES: Dtdegb-A-Guwj is in place. BONES: Stable in appearance. OTHER: No other significant finding. IMPRESSION: 1. Right-sided pulmonary nodules have increased in size as described. 2. Bony changes are stable. COMPARISON: 12/29/2019 RADIATION DOSE: CT Rad equipment meets quality standard of care and radiation dose reduction techniq ues were employed. CTDIvol: 4.5 - 4.6 mGy. DLP: 609 mGy-cm.mGy. TECHNIQUE: CT scan of the abdomen and pelvis performed with intravenous and oral contrast using cate bebo scanning technique with dynamic intravenous contrast injection. Images reviewed with lung, soft tissue and bone windows. Reconstructed coronal and sagittal MPR images reviewed. Delayed images for evaluation of the urinary system also acquired and evaluated. All images stored on PACS. All CT scanners at this facility use dose modulation, iterative reconstruction, and/or weight based d osing when appropriate to reduce radiation dose to as low as reasonably achievable (ALARA). [facility]: Dose Right [facility]: SureCare [facility]: Dose Right [facility]: Teradose 4D [facility]: [employer] FINDINGS: LIVER: Hepatic hemangioma is again noted. SPLEEN: Normal size. No focal lesions. PANCREAS: No masses. No significant calcifications. No adjacent inflammation or peripancreatic flui d collections. Pancreatic duct not dilated. GALLBLADDER: No identified stones by CT criteria. No inflammatory changes to suggest cholecystitis. ADRENAL GLANDS: Stable in appearance. RIGHT KIDNEY AND URETER: No solid masses. No significant calcification. No hydronephrosis or hydroure ter. LEFT KIDNEY AND URETER: No solid masses. No significant calcification. No hydronephrosis or hydrouret er. AORTA AND VESSELS: No aneurysm. No dissection. Renal arteries, SMA, celiac without stenosis. RETROPERITONEUM: No retroperitoneal adenopathy, hemorrhage or masses. LARGE AND SMALL BOWEL: Focal soft tissue mass is noted in the 2nd portion the duodenum. This is best demonstrated on series 3, image 27. Largest diameter is 8.8 mm. APPENDIX: Normal. ABDOMINAL WALL: No hernia or masses. PERITONEAL CAVITY: No free air. No free fluid. No peritoneal implants or masses. PELVIS: No mass or free fluid. Normal bladder. BONES: Stable in appearance. OTHER: No other significant finding. IMPRESSION: Small soft tissue mass in the 2nd portion of the duodenum. Recommend upper endoscopy fo r further assessment. No other significant findings in the abdomen or pelvis. Stable hemangioma in the right lobe of liver. Stable bony metastasis. TECHNICAL DOCUMENTATION: JOB ID: [id number] Quality ID # [id number]: Final reports with documentation of one or more dose reduction techniques (e.g., Au tomated exposure control, adjustment of the mA and/or kV according to patient size, use of iterative reconstruction technique) 2010 [employer]- All Rights Reserved Reading location - IP/workstation name: [email or web address]
== END ==
LOC: RAD 08:53
PROVIDERS: ATTEND Physician Assistant Medical
DX: C25.9 Malignant neoplasm of pancreas, unspecified (principal); R91.8 Other nonspecific abnormal finding of lung field
CPT/HCPCS: 71260; 74177

== ENCOUNTER 2020-04-15 13:09 | Emergency (ER) | payer MEDICARE, OTHER ==
--- NOTE | 2020-04-15 13:36 | ER Document Report ---
ED Medical Screen (RME) - General Chief Complaint: High Blood Pressure Stated Complaint: ELEVATED BLOOD PRESSURE Time Seen by Provider: 04/15/20 13:29 Primary Care Provider: DORI KRAMER MD [Primary Care Provider] - Follow up as needed Notes: Patient is a 69-year-old male with a history of pancreatic cancer who presents emergency department with high blood pressure readings at home. 5 days ago, he started a new chemotherapy medication and was told that is the first point to possibly go up. On Thursday he informed his primary care provider and he was started on Norvasc, although his blood pressure today was in the 200s systolic. This was at home. Exam: Blood pressure 168/103. I have greeted and performed a rapid initial assessment of this patient. A comprehensive ED assessment and evaluation of the patient, analysis of test results and completion of medical decision making process will be conducted by an additional ED providers. TRAVEL OUTSIDE OF THE [place] IN LAST 30 DAYS: No - Related Data Allergies/Adverse Reactions: No Known Allergies Allergy (Verified 04/15/20 13:30) Past Medical History - Past Medical History Cardiac Medical History: Reports: Hx Hypercholesterolemia, Hx Hypertension Denies: Hx Coronary Artery Disease, Hx Heart Attack Pulmonary Medical History: Reports: Hx COPD Denies: Hx Asthma, Hx Bronchitis, Hx Pneumonia Neurological Medical History: Denies: Hx Cerebrovascular Accident, Hx Seizures Renal/ Medical History: Denies: Hx Peritoneal Dialysis GI Medical History: Reports: Hx Gastroesophageal Reflux Disease, Hx Ulcer. Denies: Hx Hepatitis, Hx Hiatal Hernia Musculoskeltal Medical History: Denies Hx Arthritis Infectious Medical History: Denies: Hx Hepatitis Past Surgical History: Reports: Hx Urinary Tract Surgery - Right nephrectomy, prostatectomy, Other - Nephrectomy, adrenalectomy. Denies: Hx Open Heart Surgery, Hx Pacemaker - Immunizations Immunizations up to date: Yes Hx Diphtheria, Pertussis, Tetanus Vaccination: Yes Physical Exam - Vital signs Vitals: Temp Pulse Resp BP Pulse Ox 97.6 F 82 18 168/103 H 98 04/15/20 13:20 04/15/20 13:20 04/15/20 13:20 04/15/20 13:20 04/15/20 13:20 Course - Vital Signs Vital signs: Temp Pulse Resp BP Pulse Ox 97.6 F 82 18 168/103 H 98 04/15/20 13:20 04/15/20 13:20 04/15/20 13:20 04/15/20 13:20 04/15/20 13:20 Doctor's Discharge - Discharge Referrals: DORI KRAMER MD [Primary Care Provider] - Follow up as needed
--- NOTE | 2020-04-15 14:24 | EKG REPORT ---
SEVERITY:- NORMAL ECG - SINUS RHYTHM : Confirmed by: Erik Bailey MD 15-Apr-2020 14:24:12
--- NOTE | 2020-04-15 14:24 | ER Document Report ---
ED General - General Chief Complaint: High Blood Pressure Stated Complaint: ELEVATED BLOOD PRESSURE Time Seen by Provider: 04/15/20 13:29 Primary Care Provider: DORI KRAMER MD [Primary Care Provider] - Follow up as needed Notes: CHIEF COMPLAINT: Elevated blood pressure for 3 days HPI: 69-year-old male being treated for pancreatic and lung cancer with chemotherapy who received chemotherapy 5 days ago presenting for hypertension. Has noticed elevated blood pressure readings at home. Did talk to his primary care provider started Norvasc 2.5 mg 2 days ago. No chest pain no shortness of breath no headache no numbness or tingling in the extremities. Patient was concerned about the elevated blood pressure so came to the emergency department. ROS: See HPI - all other systems were reviewed and are otherwise negative Constitutional: no fever Eyes: no drainage, no blurred vision ENT: no runny nose, no sore throat Cardiovascular: no chest pain Resp: no SOB, no cough GI: no vomiting, no diarrhea, no abdominal pain : no dysuria Integumentary: no rash Allergy: no hives Musculoskeletal: no extremity pain or swelling Neurological: no numbness/tingling, no weakness MEDICATIONS: I agree with the patient medications as charted by the RN. ALLERGIES: I agree with the allergies as charted by the RN. PAST MEDICAL HISTORY/PAST SURGICAL HISTORY: Reviewed and agree as charted by RN. SOCIAL HISTORY: Reviewed and agree as charted by RN. FAMILY HISTORY: No significant familial comorbid conditions directly related to patient complaint EXAM: Reviewed vital signs as charted by RN. CONSTITUTIONAL: Alert and oriented and responds appropriately to questions. Well-appearing; well-nourished HEAD: Normocephalic; atraumatic EYES: PERRL; Conjunctivae clear, sclerae non-icteric ENT: normal nose; no rhinorrhea; moist mucous membranes; pharynx without lesions noted, no uvula edema or deviation, no tonsillar hypertrophy, phonation normal NECK: Supple without meningismus; non-tender; no cervical lymphadenopathy, no masses CARD: RRR; no murmurs, no clicks, no rubs, no gallops; symmetric distal pulses RESP: Normal chest excursion without splinting or tachypnea; breath sounds clear and equal bilaterally; no wheezes, no rhonchi, no rales, pulse oximetry 98% on room air not hypoxic ABD/GI: Normal bowel sounds; non-distended; soft, non-tender, no rebound, no guarding; no palpable organomegaly or masses. BACK: The back appears normal and is non-tender to palpation, there is no CVA tenderness EXT: Normal ROM in all joints; non-tender to palpation; no cyanosis, no effusions, no edema SKIN: Normal color for age and race; warm; dry; good turgor; no acute lesions noted NEURO: Moves all extremities equally; Motor and sensory function intact PSYCH: The patient's mood and manner are appropriate. Grooming and personal hygiene are appropriate. MDM: 69-year-old male presenting for hypertension. Was told apparently that the chemotherapy he is on may cause some hypertension. His only been on Norvasc for 2 days. Initial screening labs obtained by triage process. EKG normal sinus rhythm with a ventricular rate of 77 GA 152 QT 384 QTC 435 normal EKG. No other ectopy. Interpreted by emergency department physicians The patient was evaluated during the global COVID-19 pandemic and that diagnosis was suspected/considered upon their initial presentation. Their evaluation, treatment and testing was consistent with current guidelines for patients who present with complaints or symptoms that may be related to COVID-19 TRAVEL OUTSIDE OF THE [place] IN LAST 30 DAYS: No - Related Data Allergies/Adverse Reactions: No Known Allergies Allergy (Verified 04/15/20 13:30) Past Medical History - Social History Smoking Status: Former Smoker Family History: Reviewed & Not Pertinent - Past Medical History Cardiac Medical History: Reports: Hx Hypercholesterolemia, Hx Hypertension Denies: Hx Coronary Artery Disease, Hx Heart Attack Pulmonary Medical History: Reports: Hx COPD Denies: Hx Asthma, Hx Bronchitis, Hx Pneumonia Neurological Medical History: Denies: Hx Cerebrovascular Accident, Hx Seizures Renal/ Medical History: Denies: Hx Peritoneal Dialysis GI Medical History: Reports: Hx Gastroesophageal Reflux Disease, Hx Ulcer. Denies: Hx Hepatitis, Hx Hiatal Hernia Musculoskeletal Medical History: Denies Hx Arthritis Infectious Medical History: Denies: Hx Hepatitis Past Surgical History: Reports: Hx Urinary Tract Surgery - Right nephrectomy, prostatectomy, Other - Nephrectomy, adrenalectomy. Denies: Hx Open Heart Surgery, Hx Pacemaker - Immunizations Immunizations up to date: Yes Hx Diphtheria, Pertussis, Tetanus Vaccination: Yes Physical Exam - Vital signs Vitals: Temp Pulse Resp BP Pulse Ox 97.6 F 82 18 168/103 H 98 04/15/20 13:20 04/15/20 13:20 04/15/20 13:20 04/15/20 13:20 04/15/20 13:20 Course - Re-evaluation Re-evalutation: 04/15/20 15:[address] Oro, oncology. We discussed the patient's blood pressure readings and lab work. Will increase patient's Norvasc dosing to 5 mg daily, continue to monitor pressures follow-up with oncology and PCP - Vital Signs Vital signs: Temp Pulse Resp BP Pulse Ox 97.6 F 82 14 156/102 H 97 04/15/20 13:20 04/15/20 13:20 04/15/20 15:00 04/15/20 15:00 04/15/20 15:00 - Laboratory Results Result Diagrams: 04/15/20 14:10 04/15/20 14:10 Laboratory Results Interpreted: 04/15/20 04/15/20 14:10 14:10 RDW 14.7 H Plt Count 149 L Lymph % (Auto) 12.3 L Cuming % (Auto) 1.4 L Seg Neutrophils % 84.6 H Glucose 60 L AST 61 H Critical Laboratory Results Reviewed: No Critical Results - Radiology Results Critical Radiology Results Reviewed: No Critical Results Discharge - Discharge Clinical Impression: Hypertension Qualifiers: Hypertension type: essential hypertension Qualified Code(s): I10 - Essential (primary) hypertension Condition: Stable Disposition: HOME, SELF-CARE Additional Instructions: Increase your Norvasc dosing to 5 mg total daily dose, you may split this to taking 2.5 mg in the morning and 2.5 mg at night if you prefer. Follow-up with oncology and with PCP for further evaluation. Referrals: DORI KRAMER MD [Primary Care Provider] - Follow up as needed
[2020-04-15 14:43] LABS: ABSOLUTE EOSINOPHILS # (AUTO) 0.1 10^3/uL (0.0-0.6); ABSOLUTE LYMPHOCYTES (AUTO) 0.8 10^3/uL (0.5-4.7); ABSOLUTE MONOCYTES (AUTO) 0.1 10^3/uL (0.1-1.4); ABSOLUTE NEUT (AUTO) 5.8 10^3/uL (1.7-8.2); BASOPHILS % (AUTO) 0.4 % (0-2); EOSINOPHILS % (AUTO) 1.3 % (0-6); HEMATOCRIT 43.7 % (37.9-51.0); HEMOGLOBIN 14.6 g/dL (13.5-17.0); LYMPHOCYTES % (AUTO) 12.3 % (13-45); MEAN CORPUSCULAR HEMOGLOBIN 29.9 pg (27.0-33.4); MEAN CORPUSCULAR HGB CONC 33.4 g/dL (32.0-36.0); MEAN CORPUSCULAR VOLUME 90 fl (80-97); MONOCYTES % (AUTO) 1.4 % (3-13); PLATELET COUNT 149 10^3/uL (150-450); RED BLOOD COUNT 4.88 10^6/uL (4.35-5.55); RED CELL DISTRIBUTION WIDTH 14.7 % (11.5-14.0); SEGMENTED NEUTROPHILS % (AUTO) 84.6 % (42-78); TOTAL CELLS COUNTED % (AUTO) 100 %; WHITE BLOOD COUNT 6.9 10^3/uL (4.0-10.5)
[2020-04-15 15:06] LABS: ALBUMIN 4.3 g/dL (3.5-5.0); ALKALINE PHOSPHATASE 125 U/L (38-126); ANION GAP 10 (5-19); ASPARTATE AMINO TRANSFERASE 61 U/L (17-59); BILIRUBIN,DIRECT 0.3 mg/dL (0.0-0.4); BILIRUBIN,TOTAL 0.9 mg/dL (0.2-1.3); BLOOD UREA NITROGEN 15 mg/dL (7-20); CALCIUM 9.7 mg/dL (8.4-10.2); CARBON DIOXIDE 26 mmol/L (22-30); CHLORIDE 104 mmol/L (98-107); POTASSIUM 4.2 mmol/L (3.6-5.0); TOTAL PROTEIN 7.3 g/dL (6.3-8.2)
[2020-04-15 15:10] LABS: GLUCOSE 60 mg/dL (75-110)
[2020-04-15] MEDS ORDERED: AMLODIPINE BESYLATE 2.5 MG TABLET PO ONE (15:17)
[2020-04-15 15:57] VITALS: BP 156/100
== END 2020-04-15 15:56 | disposition home or self-care (01) ==
LOC: ER 13:09
DX: I10 Essential (primary) hypertension (principal); C25.9 Malignant neoplasm of pancreas, unspecified; C34.90 Malignant neoplasm of unspecified part of unspecified bronchus or lung; E78.00 Pure hypercholesterolemia, unspecified; Z79.899 Other long term (current) drug therapy
CPT/HCPCS: 93005; 99284; 36415; 85025; 80053; 93010; A9270